=== PATIENT | female | born 1940 | race Caucasian/White ===

== ENCOUNTER 2020-09-13 11:04 | Inpatient (IN) | payer OTHER ==
--- OUTSIDE RECORDS SUMMARY | 2020-09-13 11:11 | XMS REPORT | Continuity of Care Document ---
:1940 Author Organization [facility] t Address [address] [place] [address] Care Team Providers Name Role Phone Nadia MICHELLE Primary Care Physician Gerardo MICHELLE Attending Clinician Doctor Unassigned, Name Attending Clinician Unavailable Problems This patient has no known problems. Allergies, Adverse Reactions, Alerts Allergy Allergy Status Severity Reaction(s) Onset Inactive Treating Comm ents Source Name Type Date Date Clinician Jasvir Naik Active Extreme [place] on ycin ty to 12-09 stomach Methodi adverse 00:00: cramps st reaction 00 s to drug Family History Family Member Diagnosis Comments Start Date Stop Date Source Natural brother [facility] Natural brother [facility] Natural mother Asthma [facility] thodist Natural mother Heart disease [facility] Social History Social Habit Start Date Stop Date Quantity Comments Source [facility] Tobacco use and 2018-06-23 2018-06-23 [facility] damarisodist exposure 00:00:00 00:00:00 Alcohol intake 2018-06-23 2018-06-23 Current drinker [place] Religious 00:00:00 00:00:00 of alcohol (finding) Alcohol Comment 2017-12-09 2017-12-09 occ. [place] Jeri ethodist 00:00:00 00:00:00 Smoking Status Start Date Stop Date Source Never smoker [place] Foreign Medications Ordered Filled Start Stop Current Ordering Indication Dosage Frequency Signature Comments Components Source Medication Medication Date Date Medication? Clinician (SIG) Name Name leflunomide 2017-08 Yes 10mg QD Take 10 mg Rohan (ARAVA) 10 - by mouth Metho di MG tablet 12:40: daily. st 33 albuterol 2017-08 Yes 2{puff} Q6H Inhale 2 [place] (PROAIR 1-06 puffs Methodi HFA,PROVENT 12:40: every 6 st [place] 33 (six) HFA,VENTOLI hours as N HFA) 90 needed for mcg/actuati wheezing. on inhaler albuterol 2017-08 Yes 1{ampul Q6H Take 1 Alan ston (ACCUNEB) 1-06 e} ampule by Metho di 1.25 mg/3 12:40: nebulizati st mL 33 on every 6 nebulizer (six) solution hours as needed for wheezing. fluticasone 2017-08 Yes 1{puff} Q.5D Inhale 1 Madrigal -salmeterol 1-06 puff 2 Method i (ADVAIR) 12:40: (two) st 250-50 33 times a mcg/dose day. DISKUS denosumab 2017-08 Yes 60mg Inject 60 Alan ston (PROLIA) 60 1-06 mg under Meth abraham mg/mL 12:40: the skin st syringe 33 once. syringe predniSONE 2017-08 Yes QD Take by [place] 5 mg 1-06 mouth Methodi tablet,shon 12:40: daily. st yed release 33 (DR/EC) cholecalcif 2017-08 Yes 1000U QD Take 1,000 Madrigal hugh, 1-06 Units by Methodi vitamin D3, 12:40: mouth st (VITAMIN 33 daily. D3) 1,000 unit tablet clindamycin Yes 300mg Q.5D Take 300 [place] (CLEOCIN) 9-19 mg by Methodi 300 MG 00:00: mouth 2 st capsule 00 (two) times a day. ipratropium 2018- Yes 1{spray QD 1 spray Madrigal (ATROVENT) 8-02 } into each Meth abraham 0.03 % 00:00: nostril st nasal spray 00 daily. spironolact 2018-0 Yes 25mg QD Take 25 mg Madrigal one 3-05 by mouth Methodi (ALDACTONE) 00:00: daily. st 25 MG 00 tablet Procedures This patient has no known procedures. Plan of Care Planned Activity Planned Date Details Comments Source Future Scheduled 2020-03-16 INFLUENZA VACCINE Vernell Beasley Test 00:00:00 [code = INFLUENZA VACCINE] Future Scheduled 2006 65+ PNEUMOCOCCAL [place] Religious Test 00:00:00 VACCINE (1 of 1 - PPSV23) [code = 65+ PNEUMOCOCCAL VACCINE (1 of 1 - PPSV23)] Future Scheduled 1991 SHINGLES VACCINES (#1) [facility] Religious Test 00:00:00 [code = SHINGLES VACCINES (#1)] Future Scheduled 1957 COVID-19 VACCINE (1 of H [facility] Religious Test 00:00:00 2) [code = COVID-19 VACCINE (1 of 2)] Encounters Start End Encounter Admission Attending Care Care Encounter Source Date/Time Date/Time Type Type Clinicians Facility Department ID 2019-03-30 2019-03-30 Telephone Gerardo NCDIMITRY [id number] 00:00:00 00:00:00 Arlette Lazaro [id number] [place] [id number] Katherine [id number] [address] 2019-03-30 2019-03-30 Orders Doctor YOLANDA [id number] 00:00:00 00:00:00 Only Unassigned, JAZ [id number] [place] [facility] [id number] Results This patient has no known results.
--- OUTSIDE RECORDS SUMMARY | 2020-09-13 11:11 | XMS REPORT | Clinical Summary ---
:1940 Author Organization [facility] Address [address] [place] [address] Care Team Providers Name Role Phone Unavailable Primary Care Provider Unavailable Allergies Not on File Medications Not on file Active Problems Not on file Social History Tobacco Use Types Packs/Day Years Used Date Never Assessed Sex Assigned at Date Recorded Not on file Last Filed Vital Signs Not on file Plan of Treatment Not on file Results Not on fileafter 09/13/2019
--- OUTSIDE RECORDS SUMMARY | 2020-09-13 11:11 | XMS REPORT | Clinical Summary ---
:1940 Author Organization [facility] Address [address] [place] [address] Care Team Providers Name Role Phone MD Nadia Primary Care Provider Allergies Active Allergy Reactions Severity Noted Date Comments Erythromycin 12/09/2017 Extreme stomach cramps Medications Medication Sig Dispensed Refills Start Date End Date Status spironolactone Take 25 mg by mouth 1 10/18/2017 Active (ALDACTONE) 25 MG daily. tablet leflunomide (ARAVA) Take 10 mg by mouth 0 Active 10 MG tablet daily. albuterol (PROAIR Inhale 2 puffs 0 Active HFA,PROVENTIL every 6 (six) hours HFA,VENTOLIN HFA) 90 as needed for mcg/actuation inhaler wheezing. albuterol (ACCUNEB) Take 1 ampule by 0 Active 1.25 mg/3 mL nebulization every nebulizer solution 6 (six) hours as needed for wheezing. fluticasone-salmetero Inhale 1 puff 2 0 Active l (ADVAIR) 250-50 (two) times a day. mcg/dose DISKUS denosumab (PROLIA) 60 Inject 60 mg under 0 Active mg/mL syringe syringe the skin once. predniSONE 5 mg Take by mouth 0 Active tablet,delayed daily. release (DR/EC) cholecalciferol, Take 1,000 Units by 0 Active vitamin D3, (VITAMIN mouth daily. D3) 1,000 unit tablet ipratropium 1 spray into each 0 03/17/2018 Active (ATROVENT) 0.03 % nostril daily. nasal spray clindamycin (CLEOCIN) Take 300 mg by 0 05/04/2018 Active 300 MG capsule mouth 2 (two) times a day. Active Problems No known active problems Surgical History Surgery Date Site/Laterality Comments BRONCHOSCOPY, USING 06/21/2018 Chest/N/A Procedure: F LEXIBLE ELECTROMAGNETIC NAVIGATION [facility] HOSCOPY WITH ELECTROMAGNATIC NAVIGATION, BRONCHOSCOPY WIT H BIOPSY; Surgeon: Luis M Sandhu MD; Location: [facility]; Service: Thorac ic; Laterality: N/A; Medical History Medical History Date Comments RA (rheumatoid arthritis) (HCC) Diverticulosis Lung nodules Asthma Osteopenia Family History Medical History Relation Name Comments Lymphoma Brother Rj Man Diabetes Brother Robert Hutchinsonrvrosy Asthma Mother Heart disease Mother Relation Name Status Comments Brother Rj Hutchinsonrvrosy Alive Brother Robert Hutchinsonrvrosy Alive Father Mother Social History Tobacco Use Types Packs/Day Years Used Date Never Smoker Smokeless Tobacco: Never Used Alcohol Use Drinks/Week oz/Week Comments Yes occ. 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
[2020-09-13 13:25] LABS: Absolute Lymphocytes (CBC) 1.7 K/uL (0.7-4.9); Basophils % 0.2 % (0-1.3); Hematocrit 37.2 % (36.0-45.0); Lymphocytes % 11.7 % (15.3-44.8); MPV 7.8 fL (7.6-11.3); RBC Red Blood Cell Count 4.26 M/uL (3.86-4.86)
[2020-09-13] MEDS ORDERED: ONDANSETRON 4 MG/2 ML VIAL ONE (13:25)
[2020-09-13] MEDS ORDERED: NA CHLORIDE 0.9% 500 ML ONE (13:25)
[2020-09-13] MEDS ORDERED: MORPHINE 4 MG/ML SYR ONE ×2 (13:25→15:48)
[2020-09-13 13:42] LABS: Albumin 3.2 g/dL (3.4-5.0); Bilirubin Direct 0.1 mg/dL (0-0.2); Bilirubin Total 0.4 mg/dL (0.2-1.0); Protein, Total 7.7 g/dL (6.4-8.2)
[2020-09-13 14:13] LABS: Blood Morphology Comment NOT SEEN (NOT SEEN); Platelet Estimate ADEQ
--- NOTE | 2020-09-13 14:24 | RAD REPORT ---
EXAM DESCRIPTION: CTAbdomen Pelvis W Contrast - 09/13/2020 2:05 pm CLINICAL HISTORY: Abdominal pain. ABD PAIN COMPARISON: Abdomen Pelvis W Contrast dated 07/09/2017; CT ABD PELVIS W CONTRAST dated 05/03/2015; Thorax Wo Con dated 11/01/2017; Abdomen W/Wo Contrast dated 04/04/2019 TECHNIQUE: Biphasic CT imaging of the abdomen and pelvis was performed with 100 ml non-ionic IV cont rast. All CT scans are performed using dose optimization technique as appropriate and may include automated exposure control or mA/KV adjustment according to patient size. FINDINGS: 9 mm noncalcified nodule is seen in the left lung base laterally, unchanged since 2017 com parative study. Linear opacity is present in the posterior right lung. Small hiatal hernia is present. The liver demonstrates no focal mass or biliary dilatation. The splee n, adrenal glands and kidneys are within normal limits. 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 There is moderate inflammation seen surrounding the pancreas compatible with acute pancreatitis. No a bscess or portal venous thrombosis. No bowel obstruction, free air, free fluid or abscess. Prominent sigmoid diverticulosis coli is pres ent without diverticulitis. Nonvisualized appendix No evidence of significant lymphadenopathy. Moderate lumbosacral degenerative changes. IMPRESSION: Moderate acute pancreatitis. No complication is evident.
[2020-09-13] MEDS ORDERED: PROMETHAZINE INJ 25 MG/ML AMP ONE (15:48)
--- NOTE | 2020-09-13 15:50 | ER ---
Nurse's Notes [facility] Name: Veronica Delacruz Age: 80 yrs Sex: Female : 1940 Arrival Date: 09/13/2020 Time: 11:04 Bed 18 [facility] MD: Diagnosis: Acute pancreatitis;Abdominal and pelvic pain Presentation: 09/13 11:48 Chief complaint: Patient states: chest, abd pain and now back pain that began 0800 this morning. Coronavirus screen: Client denies travel out of the [place] in the last 14 days. Ebola Screen: Patient denies exposure to infectious person. Patient denies travel to an Ebola-affected area in the 21 days before illness onset. Initial Sepsis Screen: Does the patient meet any 2 criteria? No. Patient's initial sepsis screen is negative. Does the patient have a suspected source of infection? No. Patient's initial sepsis screen is negative. Risk Assessment: Do you want to hurt yourself or someone else? Patient reports no desire to harm self or others. Onset of symptoms was September 13, 2020. 11:48 Method Of Arrival: Ambulatory 11:48 Acuity: PRAVEENA 2 ss Historical: - Allergies: 11:50 erythromycin base; ss - Home Meds: 17:27 spironolactone 25 mg Oral tab 1 tab once daily [Active]; vg1 - PMHx: 11:50 Asthma; Rheumatoid Arthritis; ss - PSHx: 11:50 None; ss - Immunization history:: Adult Immunizations up to date. - Social history:: Smoking status: Patient denies any tobacco usage or history of. Screenin:16 Abuse screen: Denies threats or abuse. Nutritional screening: No deficits noted. vg1 Tuberculosis screening: No symptoms or risk factors identified. Fall Risk No fall in past 12 months (0 pts). No secondary diagnosis (0 pts). IV access (20 points). Ambulatory Aid- None/Bed Rest/Nurse Assist (0 pts). Gait- Normal/Bed Rest/Wheelchair (0 pts) Mental Status- Oriented to own ability (0 pts). Total Duarte Fall Scale indicates No Risk (0-24 pts). Assessment: 12:05 General: Appears in no apparent distress. comfortable, Behavior is calm, cooperative. vg1 Pain: Complains of pain in Epigasric area and below the umbilicus. Pain currently is 8 out of 10 on a pain scale. Neuro: Level of Consciousness is awake, alert, obeys commands, Oriented to person, place, time, situation. Cardiovascular: Patient's skin is warm and dry. Respiratory: Airway is patent Respiratory effort is even, unlabored, Respiratory pattern is regular, symmetrical. GI: Bowel sounds present X 4 quads. Abd is soft X 4 quads Abdomen is tender to palpation in epigastric area, right lower quadrant and left lower quadrant. : No signs and/or symptoms were reported regarding the genitourinary system. EENT: No signs and/or symptoms were reported regarding the EENT system. Derm: Skin is intact, is healthy with good turgor. Musculoskeletal: Circulation, motion, and sensation intact. 13:31 Reassessment: Patient appears in no apparent distress at this time. Patient and/or vg1 family updated on plan of care and expected duration. Pain level reassessed. Patient is alert, oriented x 3, equal unlabored respirations, skin warm/dry/pink. 15:28 Reassessment: Patient states pain keeps coming and going and is still feeling nauseous. vg1 Provider notified. 15:36 Reassessment: Received VO from DR Spears to administer 4mg of morphine IVP x1 and vg1 Promethazine 12.5 mg IVP x1. 17:00 Reassessment: Patient appears in no apparent distress at this time. Patient and/or vg1 family updated on plan of care and expected duration. Pain level reassessed. Patient is alert, oriented x 3, equal unlabored respirations, skin warm/dry/pink. Patient states feeling better. 17:30 Reassessment: Received VO from Dr Spears to administer 25mg of Spironolactone PO x1. vg1 18:36 Reassessment: Patient and/or family updated on plan of care and expected duration. Pain vg1 level reassessed. Patient is alert, oriented x 3, equal unlabored respirations, skin warm/dry/pink. Patient states that pain is coming back. Rates 4/10. 18:49 Reassessment: Attempted to call report. vg1 19:33 Reassessment: Attempted to call report. vg1 Vital Signs: 11:50 BP 213 / 99; Pulse 94; Resp 18; Temp 98.9(TE); Pulse Ox 100% on R/A; Weight 51.26 kg; ss Height 5 ft. 0 in. (152.40 cm); Pain 7/10; 11:52 BP 183 / 88; ss 12:15 BP 190 / 7; Pulse 80; Resp 16; Pulse Ox 100% on R/A; vg1 13:00 BP 172 / 80; Pulse 76; Resp 16; Pulse Ox 100% on R/A; vg1 15:30 BP 164 / 81; Pulse 76; Resp 16; Pulse Ox 95% on R/A; vg1 16:00 BP 171 / 74; Pulse 75; Resp 14; Pulse Ox 95% on R/A; vg1 17:00 BP 164 / 80; Pulse 75; Resp 14; Pulse Ox 96% on R/A; vg1 18:36 BP 183 / 82; Pulse 84; Resp 18; Pulse Ox 96% on R/A; vg1 11:50 Body Mass Index 22.07 (51.26 kg, 152.40 cm) ED Course: 11:04 Patient arrived in ED. ds1 11:49 Triage completed. ss 11:50 Arm band placed on left wrist. ss 12:05 Meghana Heard, RN is Primary Nurse. vg1 12:07 EKG done, by ED staff, reviewed by Juan Pablo Spears MD. dh3 12:16 Patient has correct armband on for positive identification. Bed in low position. Call vg1 light in reach. Side rails up X 1. 12:21 Juan Pablo Spears MD is Attending Physician. kdr 13:00 Missed attempt(s): 22 gauge in right wrist. vg1 13:28 CT Abd/Pelvis - IV Contrast Only In Process Unspecified. EDMS 13:34 Inserted saline lock: 20 gauge in left wrist, using aseptic technique. ,using aseptic vg1 technique. Done by ZAIDA Jacobo. 13:34 Initial lab(s) drawn, by hi, sent to lab. jp3 15:49 Rafael Zuniga MD is Hospitalizing Provider. kdr 16:28 COVID swab sent to lab. jp3 17:[address] via wheelchair. vg1 18:[address] vg1 19:49 No provider procedures requiring assistance completed. Patient admitted, IV remains in vg1 place. Administered Medications: 13:30 Drug: Zofran (Ondansetron) 4 mg Route: IVP; Site: left wrist; vg1 15:37 Follow up: Response: Nausea unchanged vg1 13:30 Drug: morphine 4 mg {Note: rass0.} Route: IVP; Site: left wrist; vg1 15:37 Follow up: Response: Pain is unchanged, physician notified; RASS: Restless (+1) vg1 13:30 Drug: NS 0.9% 500 ml Route: IV; Rate: bolus; Site: left wrist; vg1 15:36 Follow up: IV Status: Completed infusion; IV Intake: 500ml vg1 15:43 Drug: morphine 4 mg {Note: rass1.} Route: IVP; Site: left wrist; vg1 17:28 Follow up: Response: Pain is decreased; RASS: Alert and Calm (0) vg1 15:44 Drug: Promethazine 12.5 mg Route: IVP; Site: left wrist; vg1 17:28 Follow up: Response: No adverse reaction; Nausea is decreased vg1 18:52 Drug: Spironolactone 25 mg Route: PO; vg1 19:52 Follow up: Response: No adverse reaction vg1 Intake: 15:36 IV: 500ml; Total: 500ml. vg1 Outcome: 15:49 Decision to Hospitalize by Provider. kdr 19:50 Admitted to Tele accompanied by tech, via wheelchair, room 205, with chart, Report vg1 called to TATYANA White 19:50 Condition: stable 19:50 Instructed on the need for admit. 20:07 Patient left the ED. vg1 Signatures: Dispatcher [employer] EDJuan Pablo David MD MD kdr Sanford, Demi ds1 Elise Sparrow, RN RN Rosalind Monroy3 Seth Rose jp3 Meghana Heard RN RN vg1
--- NOTE | 2020-09-13 15:50 | EDPHYS ---
Physician Documentation [facility] Name: Veronica Delacruz Age: 80 yrs Sex: Female : 1940 Arrival Date: 09/13/2020 Time: 11:04 Bed 18 Private MD: ED Physician Juan Pablo Spears HPI: 09/13 18:40 This 80 yrs old Female presents to ER via Ambulatory with complaints of kdr Abdominal Pain. 18:40 The patient presents with abdominal pain in the epigastric area, in the upper abdomen, kdr that is diffuse, From mid chest to pelvis. Onset: The symptoms/episode began/occurred gradually, this morning, at 08:00. The symptoms radiate to back. Associated signs and symptoms: Pertinent positives: nausea, Pertinent negatives: chest pain. The symptoms are described as achy, constant, sharp, steady. Modifying factors: The symptoms are alleviated by nothing, the symptoms are aggravated by breathing deeply, movement, touching the area. Severity of pain: At its worst the pain was moderate severe incapacitating just prior to arrival, in the emergency department the pain is unchanged. The patient has experienced a previous episode, approximately 4 years ago. The patient has not recently seen a physician. Historical: - Allergies: 11:50 erythromycin base; ss - Home Meds: 17:27 spironolactone 25 mg Oral tab 1 tab once daily [Active]; vg1 - PMHx: 11:50 Asthma; Rheumatoid Arthritis; ss - PSHx: 11:50 None; ss - Immunization history:: Adult Immunizations up to date. - Social history:: Smoking status: Patient denies any tobacco usage or history of. ROS: 18:40 Constitutional: Negative for fever, chills, and weight loss, Eyes: Negative for injury, kdr pain, redness, and discharge, ENT: Negative for injury, pain, and discharge, Neck: Negative for injury, pain, and swelling, Cardiovascular: Negative for chest pain, palpitations, and edema, Respiratory: Negative for shortness of breath, cough, wheezing, and pleuritic chest pain, Back: Negative for injury and pain, : Negative for injury, bleeding, discharge, and swelling, MS/Extremity: Negative for injury and deformity, Skin: Negative for injury, rash, and discoloration, Neuro: Negative for headache, weakness, numbness, tingling, and seizure activity. Psych: Negative for depression, anxiety, suicide ideation, homicidal ideation, and hallucinations, Allergy/Immunology: Negative for hives, rash, and allergies, Endocrine: Negative for neck swelling, polydipsia, polyuria, polyphagia, and marked weight changes, Hematologic/Lymphatic: Negative for swollen nodes, abnormal bleeding, and unusual bruising. 18:40 Abdomen/GI: Positive for abdominal pain, nausea, Negative for diarrhea, constipation, abdominal distension, anorexia, dysphagia, hematemesis, black/tarry stool, rectal pain, rectal bleeding, bowel incontinence. Exam: 18:40 Constitutional: This is a well developed, well nourished patient who is awake, alert, kdr and in mild to moderate distress. Head/Face: Normocephalic, atraumatic. Eyes: Pupils equal round and reactive to light, extra-ocular motions intact. Lids and lashes normal. Conjunctiva and sclera are non-icteric and not injected. Cornea within normal limits. Periorbital areas with no swelling, redness, or edema. Neck: Trachea midline, no thyromegaly or masses palpated, and no cervical lymphadenopathy. Supple, full range of motion without nuchal rigidity, or vertebral point tenderness. No Meningismus. Chest/axilla: Normal chest wall appearance and motion. Nontender with no deformity. No lesions are appreciated. Cardiovascular: Regular rate and rhythm with a normal S1 and S2. No gallops, murmurs, or rubs. Normal PMI, no JVD. No pulse deficits. Respiratory: Lungs have equal breath sounds bilaterally, clear to auscultation and percussion. No rales, rhonchi or wheezes noted. No increased work of breathing, no retractions or nasal flaring. Back: No spinal tenderness. No costovertebral tenderness. Full range of motion. Skin: Warm, dry with normal turgor. Normal color with no rashes, no lesions, and no evidence of cellulitis. MS/ Extremity: Pulses equal, no cyanosis. Neurovascular intact. Full, normal range of motion. Neuro: Awake and alert, GCS 15, oriented to person, place, time, and situation. Cranial nerves II-XII grossly intact. Motor strength 5/5 in all extremities. Sensory grossly intact. Cerebellar exam normal. Normal gait. Psych: Awake, alert, with orientation to person, place and time. Behavior, mood, and affect are within normal limits. 18:40 Abdomen/GI: Inspection: abdomen appears normal, Bowel sounds: diminished, in all quadrants, Palpation: soft, mild abdominal tenderness, in the epigastric area, right upper quadrant and left upper quadrant. Vital Signs: 11:50 BP 213 / 99; Pulse 94; Resp 18; Temp 98.9(TE); Pulse Ox 100% on R/A; Weight 51.26 kg; ss Height 5 ft. 0 in. (152.40 cm); Pain 7/10; 11:52 BP 183 / 88; ss 12:15 BP 190 / 7; Pulse 80; Resp 16; Pulse Ox 100% on R/A; vg1 13:00 BP 172 / 80; Pulse 76; Resp 16; Pulse Ox 100% on R/A; vg1 15:30 BP 164 / 81; Pulse 76; Resp 16; Pulse Ox 95% on R/A; vg1 16:00 BP 171 / 74; Pulse 75; Resp 14; Pulse Ox 95% on R/A; vg1 17:00 BP 164 / 80; Pulse 75; Resp 14; Pulse Ox 96% on R/A; vg1 18:36 BP 183 / 82; Pulse 84; Resp 18; Pulse Ox 96% on R/A; vg1 11:50 Body Mass Index 22.07 (51.26 kg, 152.40 cm) ss MDM: 15:49 Patient medically screened. kdr 18:40 Data reviewed: vital signs, nurses notes, lab test result(s), radiologic studies. kdr Counseling: I had a detailed discussion with the patient and/or guardian regarding: the historical points, exam findings, and any diagnostic results supporting the discharge/admit diagnosis, lab results, radiology results, the need for further work-up and treatment in the hospital. Physician consultation: Rafael Zuniga MD regarding admission, and will see patient in inpatient room, later today. Admission orders: after a detailed discussion of the patient's condition and case, the admit orders are written by me. 09/13 12:22 Order name: Basic Metabolic Panel; Complete Time: 14:03 kdr 09/13 12:22 Order name: CBC with Diff; Complete Time: 14:20 kdr 09/13 12:22 Order name: Hepatic Function; Complete Time: 14:03 kdr 09/13 12:22 Order name: Lipase; Complete Time: 14:03 kdr 09/13 12:52 Order name: Troponin (emerg Dept Use Only); Complete Time: 14:03 kdr 09/13 14:13 Order name: Manual Differential; Complete Time: 14:20 EDMS 09/13 12:52 Order name: CT Abd/Pelvis - IV Contrast Only; Complete Time: 14:38 kdr 09/13 15:48 Order name: Cholangiogram EDAL 09/13 17:38 Order name: SARS-COV-2 RT PCR EDAL 09/13 12:22 Order name: IV Saline Lock; Complete Time: 13:38 kdr 09/13 12:22 Order name: Labs collected and sent; Complete Time: 13:38 [facility] 09/13 12:53 Order name: EKG - Nurse/Tech; Complete Time: 13:05 [facility] 09/13 16:04 Order name: Dr Andre Antonio EDAL 09/13 16:04 Order name: NPO EDAL Administered Medications: 13:30 Drug: Zofran (Ondansetron) 4 mg Route: IVP; Site: left wrist; vg1 15:37 Follow up: Response: Nausea unchanged vg1 13:30 Drug: morphine 4 mg {Note: rass0.} Route: IVP; Site: left wrist; vg1 15:37 Follow up: Response: Pain is unchanged, physician notified; RASS: Restless (+1) vg1 13:30 Drug: NS 0.9% 500 ml Route: IV; Rate: bolus; Site: left wrist; vg1 15:36 Follow up: IV Status: Completed infusion; IV Intake: 500ml vg1 15:43 Drug: morphine 4 mg {Note: rass1.} Route: IVP; Site: left wrist; vg1 17:28 Follow up: Response: Pain is decreased; RASS: Alert and Calm (0) vg1 15:44 Drug: Promethazine 12.5 mg Route: IVP; Site: left wrist; vg1 17:28 Follow up: Response: No adverse reaction; Nausea is decreased vg1 18:52 Drug: Spironolactone 25 mg Route: PO; vg1 19:52 Follow up: Response: No adverse reaction vg1 Disposition: 09/13/20 15:49 Hospitalization ordered by Rafael Zuniga for Inpatient Admission. Preliminary diagnosis are Acute pancreatitis, Abdominal and pelvic pain. - Bed requested for Telemetry/MedSurg (Inpatient). - Status is Inpatient Admission. vg1 - Condition is Fair. - Problem is an acute exacerbation. - Symptoms have improved. Signatures: Dispatcher [employer] EDAL Aaliyah Lieberman, RN RN dw Juan Pablo Spears MD MD [facility] Elise Sparrow, TATYANA RN ss Meghana Heard, TATYANA RN vg1 Corrections: (The following items were deleted from the chart) 16:27 16:11 CORONAVIRUS+MR.LAB.BRZ ordered. [facility] EDAL 18:13 15:49 Hospitalization Ordered by Rafael Zuniga MD for Inpatient Admission. Preliminary dw diagnosis is Acute pancreatitis; Abdominal and pelvic pain. Bed requested for Telemetry/MedSurg (Inpatient). Status is Inpatient Admission. Condition is Fair. Problem is an acute exacerbation. Symptoms have improved. kdr 20:07 18:13 09/13/2020 15:49 Hospitalization Ordered by Rafael Zuniga MD for Inpatient vg1 Admission. Preliminary diagnosis is Acute pancreatitis; Abdominal and pelvic pain. Bed requested for Telemetry/MedSurg (Inpatient). Status is Inpatient Admission. Condition is Fair. Problem is an acute exacerbation. Symptoms have improved. dw
[2020-09-13] MEDS ORDERED: ACETAMINOPHEN 500 MG TAB PO PRN (16:00)
[2020-09-13] MEDS ORDERED: SPIRONOLACTONE 25 MG TABLET PO SCH (18:30)
--- NOTE | 2020-09-13 19:00 | RAD REPORT ---
EXAM DESCRIPTION: MRI - Cholangiogram - 09/13/2020 6:27 pm CLINICAL HISTORY: abd pain Pancreatitis, abdominal pain COMPARISON: Abdomen Pelvis W Contrast dated 09/13/2020 FINDINGS: Three-dimensional MRCP was performed using maximum intensity projection reconstruction on the same work station. No intrahepatic biliary tree dilatation is seen. The common bile duct is normal caliber without evide nce of retained stone, stricture or mass. Moderate inflammatory change/ edema involves the pancreas. Pancreatic duct is not dilated. No gross evidence gallstones. Limited T2 sequences through the abdomen demonstrates no bulky adenopathy, significant free fluid or abscess. 3 cm right adrenal mass. IMPRESSION: Negative MR cholangiogram. Moderate pancreatitis.
--- NOTE | 2020-09-13 20:44 | P.HP ---
Certification for Inpatient Patient admitted to: Inpatient With expected LOS: >2 Midnights Practitioner: I am a practitioner with admitting privileges, knowledge of patient current condition, hospital course, and medical plan of care. Services: Services provided to patient in accordance with Admission requirements found in Title 42 Section 412.3 of the Code of Federal Regulations Patient History Date of Service: 09/13/20 Reason for admission: ABDOMEN PAIN History of Present Illness: MS CHERY HAS RECENTLY HAD ACUTE BRONCHTIS EPSODE UNIMPROVED ON AUGMENTIN AND NEBS. I AVOIDED STEROIDS SHE HAD ONE DOSE OF COVID VACCINE AND SHE IS AWAITING SECOND ONE. GIVING STEROIDS WILL REDUCE THE POTENCY OF THE VACCINE THAT IS VERY IMPORTANT AT THIS POINT. SHE HAS RECOVERED FROM BRONCHITIS AFTER I GAVE HER STEROID NEBULIZER BUDESONIDE. SHE REPORTS TO ER TODAY WITH SUDDEN ONSET OF EPIG PAIN WITH RADIATION TO THE BACK. SHE HAS LIPSE OF 9K AND SECOND EPISODE OF PANCREATITIS. FIRST ONE WAS 15 YEARS AGO. Allergies erythromycin base [Erythromycin Base] Adverse Reaction (Intermediate, Verified 07/09/17 22:52) Nausea/Vomiting Erythromycin Allergy (Uncoded 07/09/17 22:52) Unknown Home Medications: Albuterol Sulfate [Ventolin Hfa] 1.25 mg IH BID PRN 07/09/17 Fluticasone/Salmeterol [Advair 250-50 Diskus] 1 each IH DAILY 07/09/17 Leflunomide 1 tab PO DAILY 07/09/17 Spironolactone 1 tab PO DAILY 07/09/17 predniSONE [Prednisone*] 1 tab PO SEECOM PRN 07/09/17 - Past Medical/Surgical History Has patient received pneumonia vaccine in the past: Yes -: Ashma -: Rheumatoid Arthritis - Social History Alcohol use: No CD- Drugs: No Caffeine use: Yes Review of Systems 10-point ROS is otherwise unremarkable General: Weakness, Malaise Physical Examination - Vital Signs Temperature: 98.9 F Blood Pressure: 183/82 Pulse: 84 Respirations: 18 - Physical Exam General: Oriented x3, Mild distress HEENT: Atraumatic, PERRLA, Mucous membr. moist/pink, EOMI, Sclerae nonicteric Neck: Supple, 2+ carotid pulse no bruit, No LAD, Without JVD or thyroid abnormality Respiratory: Clear to auscultation bilaterally, Normal air movement Cardiovascular: Regular rate/rhythm, Normal S1 S2 Gastrointestinal: Normal bowel sounds, No tenderness Musculoskeletal: No tenderness Integumentary: No rashes Neurological: Normal gait, Normal speech, Normal strength at 5/5 x4 extr, Normal tone, Normal affect Lymphatics: No axilla or inguinal lymphadenopathy - Studies Laboratory Data (last 24 hrs) 09/13/20 13:10: WBC 14.50 H, Hgb 12.3, Hct 37.2, Plt Count 395 09/13/20 13:10: Sodium 141, Potassium 4.0, BUN 15, Creatinine 0.77, Glucose 89, Total Bilirubin 0.4, AST 13 L, ALT 13, Alkaline Phosphatase 92, Lipase 8798 H Assessment and Plan - Problems (Diagnosis) (1) Rheumatoid arthritis Current Visit: Yes Status: Chronic Qualifiers: Laterality: bilateral (2) Acute pancreatitis Onset Date: 07/12/17 Current Visit: No Status: Acute Plan: IV FLUIDS PAIN MANAGEMENT , SHE IS NOT IN PAIN FOR NOW. SUPPORTIVE CARE CONSULT DR. BERNARDO. MOST LIKELY SHE SHOULD BE ABLE TO GO HOME IN AM. Qualifiers: Pancreatitis type: idiopathic (3) History of asthma Current Visit: No Status: Acute - Advance Directives Does patient have a Living Will: Yes Does patient have a Durable POA for Healthcare: Yes
[2020-09-13] MEDS: D5 0.45 NS 1,000 ML IV SCH (21:20)
[2020-09-13] MEDS: MORPHINE 4 MG/ML SYR IV PRN (21:21)
[2020-09-13] MEDS: PROMETHAZINE INJ 25 MG/ML AMP IV PRN (21:25)
[2020-09-14 00:03] VITALS: BMI 22.0
[2020-09-14] MEDS: D5 0.45 NS 1,000 ML IV SCH ×5 (02:00→23:01)
[2020-09-14] MEDS ORDERED: ALBUTEROL INHALER 60 PUFF/8 GM IH PRN (05:23)
[2020-09-14] MEDS: MORPHINE 4 MG/ML SYR IV PRN ×2 (05:29→13:34)
[2020-09-14] MEDS ORDERED: LEFLUNOMIDE PO SCH (05:30)
[2020-09-14] MEDS: PROMETHAZINE INJ 25 MG/ML AMP IV PRN (05:30)
[2020-09-14] MEDS ORDERED: FAMOTIDINE 20 MG TAB PO PRN (05:33)
[2020-09-14 05:46] LABS: Absolute Lymphocytes (CBC) 1.5 K/uL (0.7-4.9); Basophils % 0.4 % (0-1.3); Hematocrit 34.8 % (36.0-45.0); Lymphocytes % 9.4 % (15.3-44.8); MPV 7.9 fL (7.6-11.3); RBC Red Blood Cell Count 3.94 M/uL (3.86-4.86)
[2020-09-14 06:03] LABS: Albumin 2.7 g/dL (3.4-5.0); Bilirubin Direct 0.1 mg/dL (0-0.2); Bilirubin Total 0.5 mg/dL (0.2-1.0); Potassium 3.7 mmol/L (3.5-5.1); Protein, Total 6.8 g/dL (6.4-8.2)
[2020-09-14] MEDS: DULERA 100/5 (MOMETASONE/FORMOTEROL) INHALER IH SCH ×2 (09:00→20:39)
--- NOTE | 2020-09-14 09:23 | PN ---
Subjective: Ms. Delacruz is doing better. She had pain this morning, 11/23. She received narcotic pain medication it. Objective: Chest: Clear. Heart: Regular. Abdomen: No guarding. No rebound. No rigidity. Laboratory Data: White count 15,000. Lipase has come down from 8700 to 3600. Assessment/plan: 1.Acute pancreatitis. Continue n.p.o. Continue IV fluids. Continue comfort care. Conservative ma nagement. 2.Deep venous thrombosis prophylaxis. Dr. Antonio is consulted. She should be possibly going home t omorrow hopefully. Otherwise, she is clinically stable. RVD/MODL Voice ID: [id number] Report ID: [id number]
[2020-09-14] MEDS: SPIRONOLACTONE 25 MG TABLET PO SCH (10:25)
[2020-09-14] MEDS ORDERED: LEFLUNOMIDE 10 MG PO SCH (17:00)
[2020-09-14] MEDS ORDERED: GABAPENTIN 100 MG CAP PO SCH (21:00)
--- NOTE | 2020-09-14 22:49 | CON ---
Date of Consultation: 09/14/2020 Reason For Consultation: Acute pancreatitis. History Of Present Illness: The patient is a 80-year-old white female with history of hypertension, rheumatoid arthritis, asthma, who presented to the hospital with acute pancreatitis. CT scan positiv e for moderate pancreatitis. MRCP negative. Lipase elevated ultimately to 8000 and the patient note s recent change in medications due to COVID-19. She received her first COVID-19 vaccination approxim ately a month ago and she had some shortness of breath related to her asthma and was started on Augme ntin and budesonide MDI or nebulizer approximately 3 days ago. Of note, she had pancreatitis 15 year s ago, which is idiopathic. She does not remember things and medicines given 15 years ago. The lux ent denies any history of alcohol. Triglycerides will be checked. Other labs appear to be within no rmal limits except for white count is up at approximately 14,000 to 15,000. Past Medical History: Significant for hypertension, rheumatoid arthritis, asthma. Medications: At home include spironolactone for her blood pressure she states, leflunomide, and then she is on Advair and Ventolin inhalers and prednisone at home, which has been held because it may in terfere with the second COVID-19 vaccination she is supposed to receive this week or next week. Allergies: ERYTHROMYCIN. Social History: She is with 2 adopted kids. No tobacco. No alcohol. Family History: Father of congestive heart failure at the age of 86 in [place], [place]. Her moth er of respiratory failure with a history of asthma at the age of 71 in the [facility] area, which is just she reports. Review of Systems: The patient had some shortness of breath she says since [place] with history of recurrent bronchiti s, really has not changed and that is the reason why she was started on Augmentin and budesonide, whi ch she thinks may have led to this pancreatitis event. She also noted generalized abdominal pain ext ending to her chest prior to admission with 9.5/10 pain. Now, the pain is down to 0. Before it went to 0, her pain localized in the midepigastric area she reports and little bit to the left. The lux ent has some nausea as well. No fevers, chills, night sweats, heat or cold intolerance. No melena, hematochezia, hematemesis, coffee-grounds emesis, hematuria, lower extremity edema, muscle aches, galindo nt aches, backaches. No seizure or syncope. No depression or anxiety. Physical Examination: Vital Signs: The patient is 5 feet, 113 pounds, BMI 22.1 kg/m2. She has temperature of 99.1 degrees Fahrenheit, pulse 89, respirations 18, blood pressure 138/65, O2 saturation 93%. General: She is an elderly female, lying in bed, in no acute distress. HEENT: Normocephalic, atraumatic. Anicteric. Pupils equal, round, and reactive to light. Extraocu lar movements are intact. Oropharynx is clear. Neck: Supple. No masses. Respirations: Clear to auscultation bilaterally. Respirations clear on anterior exam only. Some di minished breath sounds in the bases. Cardiac: Regular rate and rhythm. No gallops or rubs. Abdomen: Positive bowel sounds. Soft, nondistended, nontender. No hepatosplenomegaly. No peritone al or Roberts sign. No rebound. Extremities: No clubbing, cyanosis, or edema. 2+ pulses. Neurologic: Alert and oriented x3. Grossly nonfocal. 5/5 motor sensation intact to light touch. Laboratory Data: The patient has a white count of 15.4 from 14.5 yesterday, hemoglobin 11.3, hematoc rit 34.8, MCV of 88, platelet count of 235, neutrophils of 73, lymphocytes 9.4, monocytes 4.0, eosino phils 13.2. The patient has sodium 138, potassium 3.7, chloride 109, bicarb 24, BUN of 12, creatinin e of 0.69, glucose is 100, calcium 8.5, total bilirubin 0.5, direct bilirubin 0.1, AST of 13, ALT of 9, alkaline phosphatase 72. Troponin I less than 0.02. Total protein 6.8, albumin 2.7. Triglycerid es 90, cholesterol 160, LDL 102, HDL 40. Lipase has gone from 8798 down to 3634. COVID-19 testing w as negative. CT abdomen and pelvis revealed pancreatitis . She also has some moderate lum bar sacral degenerative changes. MRCP was negative. No stones were noted in the bile duct nor in th e gallbladder. Impression: 1.Acute pancreatitis, idiopathic, possibly related to medication changes. The patient states p.o. p rednisone was held due to the COVID-19 vaccination she is supposed to receive soon and was placed on Augmentin and budesonide inhaler or nebulizer approximately 3 days ago. The pancreatitis event start ed yesterday with generalized abdominal pain of 0.5/10, then decreasing to just localized into the mi depigastric upper quadrant area. Finally, her pain is 0. MRCP was negative for stones. She does no t drink alcohol. Calcium is normal. The patient had an event 15 years ago of pancreatitis, which is idiopathic as well. The patient does note she adjusted her medicines for her asthma, recurrent bron chitis, and rheumatoid arthritis at that time. 2.Shortness of breath since [place] with a history of recurrent bronchitis and asthma. 3.History of hypertension, rheumatoid arthritis, asthma, and recurrent bronchitis. Recommendation: 1.Increase IV fluids gently. Allow limited ice chips and change to LR at approximately 125 cc/hour. We will check B-type natriuretic peptide as well. 2.Check triglycerides, which is done and CA19-9. 3.Keep the patient n.p.o. except for limited ice chips and possibly go on to clear liquids tomorrow. Monitor labs and possibly chest x-ray. JAQUAN/NICOL Voice ID: [id number] Report ID: [id number]
[2020-09-14 23:08] VITALS: O2SAT 95
[2020-09-15] MEDS: Ringers Lactate 1,000 ML IV SCH ×2 (01:09→10:13)
[2020-09-15 06:01] LABS: Absolute Lymphocytes (CBC) 1.9 K/uL (0.7-4.9); Basophils % 0.5 % (0-1.3); Lymphocytes % 12.9 % (15.3-44.8); MPV 7.9 fL (7.6-11.3); RBC Red Blood Cell Count 3.64 M/uL (3.86-4.86)
[2020-09-15 06:17] LABS: BUN Blood Urea Nitrogen 7 mg/dL (7-18); Bicarbonate 23 mmol/L (21-32); Glucose Level 79 mg/dL (74-106); Lipase 857 U/L (73-393); NT PRO-BNP 194 pg/mL (<450); Phosphorus 2.3 mg/dL (2.5-4.9); Potassium 3.6 mmol/L (3.5-5.1); Sodium Level 143 mmol/L (136-145)
[2020-09-15] MEDS ORDERED: ENOXAPARIN 40 MG/0.4 ML SQ STA (07:03)
[2020-09-15] MEDS: DULERA 100/5 (MOMETASONE/FORMOTEROL) INHALER IH SCH (09:00)
[2020-09-15 09:13] VITALS: BP 130/67; TEMP 99.5
[2020-09-15] MEDS: SPIRONOLACTONE 25 MG TABLET PO SCH (10:14)
--- NOTE | 2020-09-15 12:01 | P.PN ---
Subjective Date of Service: 09/15/20 Chief Complaint: general -> CIRILO/LUQ pain, pancreatitis Subjective: Improving (No pain now. Tolerated ice chips over night. Lipase 8798 to 3634 to 857 today. As per pharmacy review Prednisone and Leflunomide (for RA) can cause pancreatitis, but she stopped the latter 2-3 weeks ago.) Review of Systems 10-point ROS is otherwise unremarkable General: Weakness (Improved. ) Physical Examination - Vital Signs Temperature: 99.5 F Blood Pressure: 130/67 Pulse: 85 Respirations: 18 Pulse Ox (%): 95 - Physical Exam General: Alert, In no apparent distress, Oriented x3, Cooperative HEENT: Atraumatic, Normocephalic, PERRLA, EOMI Neck: Supple Respiratory: Clear to auscultation bilaterally Cardiovascular: Normal pulses Gastrointestinal: Soft and benign, No tenderness, No rebound, No guarding Neurological: Normal speech, Normal strength at 5/5 x4 extr Assessment And Plan - Current Problems (Diagnosis) (1) Generalized abdominal pain Current Visit: Yes Status: Acute Comment: Resolved. (2) Epigastric abdominal pain Current Visit: Yes Status: Acute Comment: Resolved. (3) Abnormal CT of the abdomen Current Visit: Yes Status: Acute (4) Rheumatoid arthritis Current Visit: Yes Status: Chronic Qualifiers: Laterality: bilateral (5) Acute pancreatitis Onset Date: 07/12/17 Current Visit: No Status: Acute Qualifiers: Pancreatitis type: idiopathic - Plan REC: 1) CL diet and advance slowly to FL then to low fat / low cholesterol 2) GI clinic f/u next week
--- NOTE | 2020-09-15 12:24 | P.DS ---
Admission Date: 09/13/20 Discharge Date: 09/15/20 Disposition: ROUTINE DISCHARGE Reason for Admission: general -> CIRILO/LUQ pain, pancreatitis - Problems (1) Rheumatoid arthritis Current Visit: Yes Status: Chronic Qualifiers: Laterality: bilateral (2) Acute pancreatitis Onset Date: 07/12/17 Current Visit: No Status: Acute Qualifiers: Pancreatitis type: idiopathic (3) History of asthma Current Visit: No Status: Acute Brief History of Present Illness: MS CHERY HAS RECENTLY HAD ACUTE BRONCHTIS EPSODE UNIMPROVED ON AUGMENTIN AND NEBS. I AVOIDED STEROIDS SHE HAD ONE DOSE OF COVID VACCINE AND SHE IS AWAITING SECOND ONE. GIVING STEROIDS WILL REDUCE THE POTENCY OF THE VACCINE THAT IS VERY IMPORTANT AT THIS POINT. SHE HAS RECOVERED FROM BRONCHITIS AFTER I GAVE HER STEROID NEBULIZER BUDESONIDE. SHE REPORTS TO ER TODAY WITH SUDDEN ONSET OF EPIG PAIN WITH RADIATION TO THE BACK. SHE HAS LIPSE OF 9K AND SECOND EPISODE OF PANCREATITIS. FIRST ONE WAS 15 YEARS AGO. Hospital Course: CARLINE CAME WITH PANCREATITIS ,HAD ABDOMEN PAIN WITH RADIATION TO BACK. THIS IS SECOND TIME IN LAST 15 YEARS. SHE IS LOT BETTER. SHE WANTS TO GO HOME. SHE WILL DO LIQUID DIET FOR COUPLE OF DAYS AND THEN RAISE TO EGGS AND CHICKEN, SOFT DIET. Vital Signs/Physical Exam: Temp Pulse Resp BP Pulse Ox 99.5 F 85 18 130/67 95 09/15/20 12:02 09/15/20 12:02 09/15/20 12:02 09/15/20 12:02 09/15/20 12:02 Laboratory Data at Discharge: WBC 14.70 K/uL (4.3-10.9) H 09/15/20 05:32 Hgb 10.6 g/dL (12.0-15.0) L 09/15/20 05:32 Hct 32.0 % (36.0-45.0) L 09/15/20 05:32 Plt Count 327 K/uL (152-406) 09/15/20 05:32 Sodium 143 mmol/L (136-145) 09/15/20 05:32 Potassium 3.6 mmol/L (3.5-5.1) 09/15/20 05:32 BUN 7 mg/dL (7-18) 09/15/20 05:32 Creatinine 0.56 mg/dL (0.55-1.3) 09/15/20 05:32 Glucose 79 mg/dL (74-106) 09/15/20 05:32 Phosphorus 2.3 mg/dL (2.5-4.9) L 09/15/20 05:32 Magnesium 2.0 mg/dL (1.8-2.4) 09/15/20 05:32 Total Bilirubin 0.5 mg/dL (0.2-1.0) 09/14/20 05:19 AST 13 U/L (15-37) L 09/14/20 05:19 ALT 9 U/L (12-78) L 09/14/20 05:19 Alkaline Phosphatase 72 U/L (45-117) 09/14/20 05:19 Triglycerides 90 mg/dL (<150) 09/14/20 17:11 Cholesterol 160 mg/dL (<200) 09/14/20 17:11 HDL Cholesterol 40 mg/dL (40-60) 09/14/20 17:11 Cholesterol/HDL Ratio 4.00 09/14/20 17:11 Lipase 857 U/L (73-393) H 09/15/20 05:32 Home Medications: Albuterol Sulfate [Ventolin Hfa] 1 inh IH QIDP PRN 07/09/17 Fluticasone/Salmeterol [Advair 250-50 Diskus] 2 inh IH DAILY 07/09/17 Leflunomide 10 mg PO Q48H 07/09/17 Spironolactone 1 tab PO DAILY 07/09/17 predniSONE [Prednisone*] 1 - 2 tab PO PRN PRN 07/09/17 Ascorbic Acid [Vitamin C] 1,000 mg PO DAILY 09/14/20 Cholecalciferol (Vitamin D3) [Vitamin D3] 1,000 unit PO BID 09/14/20 Famotidine 10 mg PO DAILY PRN 09/14/20 Fexofenadine HCl [Aller-Fex] 1 tab PO DAILY PRN 09/14/20 Gabapentin 100 mg PO BEDTIME 09/14/20 Multi-Probiotic Sinus Support 1 tab PO DAILY 09/14/20 Followup: Rafael Zuniga MD [Primary Care Provider] - (Call to make an appointment. )
== END 2020-09-15 14:17 | disposition home or self-care (01) | DRG 440 ==
LOC: ER 11:04 → ERHOLD 16:04 → INTOOBSV 16:04 → OBSVTOIN 16:04 → 2ND 19:53
PROVIDERS: ADMIT Internal Medicine; ATTEND Internal Medicine
DX: K85.00 Idiopathic acute pancreatitis without necrosis or infection (principal); J45.909 Unspecified asthma, uncomplicated; M06.9 Rheumatoid arthritis, unspecified; I10 Essential (primary) hypertension; Z20.822 Contact with and (suspected) exposure to COVID-19; Z88.3 Allergy status to other anti-infective agents; Z82.5 Family history of asthma and other chronic lower respiratory diseases
CPT/HCPCS: 36415; 74177; 74181; 80048; 80061; 80076; 83690; 83735; 83880; 84100; 84484; 85025; 86301; 93005; 96361; 96374; 96375; 99285; J1650; J2405; J2550; J7040; J7120; J7606; J7799; Q9967; U0003

== ENCOUNTER 2021-06-18 21:16 | Emergency (ER) | payer OTHER ==
[2021-06-18 22:43] LABS: Absolute Lymphocytes (CBC) 2.4 K/uL (0.7-4.9); Basophils % 1.2 % (0-1.3); Hematocrit 38.1 % (36.0-45.0); Lymphocytes % 31.6 % (15.3-44.8); RBC Red Blood Cell Count 4.33 M/uL (3.86-4.86)
[2021-06-18 22:44] LABS: Protime INR 0.99
[2021-06-18 22:58] LABS: ALT/SGPT 25 U/L (12-78); AST/SGOT 23 U/L (15-37); Albumin 3.4 g/dL (3.4-5.0); Alkaline Phosphatase 78 U/L (45-117); BUN Blood Urea Nitrogen 17 mg/dL (7-18); Bicarbonate 22 mmol/L (21-32); Bilirubin Direct < 0.1 mg/dL (0-0.2); Bilirubin Total 0.2 mg/dL (0.2-1.0); Glucose Level 104 mg/dL (74-106); Magnesium 2.4 mg/dL (1.8-2.4); NT PRO-BNP 285 pg/mL (<450); Potassium 3.8 mmol/L (3.5-5.1); Protein, Total 7.7 g/dL (6.4-8.2); Sodium Level 142 mmol/L (136-145); Troponin (Emerg Dept Use Only) < 0.02 ng/mL (0.0-0.045)
[2021-06-18] MEDS ORDERED: ACETAMINOPHEN 500 MG TAB ONE (23:14)
--- NOTE | 2021-06-18 23:53 | ER ---
Nurse's Notes [facility] Name: Veronica Delacruz Age: 81 yrs Sex: Female : 1940 Arrival Date: 06/18/2021 Time: 21:19 Bed 11 Private MD: Diagnosis: Essential (primary) hypertension Presentation: 06/18 21:27 Chief complaint: Patient states: bp has been high the past 2 days. pt does not have htn mr2 and bp is usually in the 120s sys. pt also rpts headache. denies vision changes, dizziness. Coronavirus screen: Vaccine status: Patient reports receiving the 2nd dose of the covid vaccine. Ebola Screen: Patient negative for fever greater than or equal to 101.5 degrees Fahrenheit, and additional compatible Ebola Virus Disease symptoms Patient denies exposure to infectious person. Patient denies travel to an Ebola-affected area in the 21 days before illness onset. Initial Sepsis Screen: Does the patient meet any 2 criteria? No. Patient's initial sepsis screen is negative. Does the patient have a suspected source of infection? No. Patient's initial sepsis screen is negative. Risk Assessment: Do you want to hurt yourself or someone else? Patient reports no desire to harm self or others. Onset of symptoms was June 17, 2021. 21:27 Method Of Arrival: Ambulatory mr2 21:27 Acuity: PRAVEENA 3 mr2 Triage Assessment: 21:35 Headache History: Denies prior headaches. General: Appears distressed, uncomfortable, mr2 well developed, Behavior is calm, cooperative. Pain: Pain currently is 3 out of 10 on a pain scale. Pain began 1 day ago. Also complains of no other associated symptoms. 21:35 Neuro: No deficits noted. mr2 Historical: - Allergies: 21:35 erythromycin base; mr2 - Home Meds: 21:35 Advair Diskus 250-50 mcg/dose Inhl dsdv 1 puff 2 times per day [Active]; prednisone 5 mr2 mg Oral tab once daily [Active]; spironolactone 25 mg Oral tab 1 tab once daily [Active]; - PMHx: 21:35 Asthma; Rheumatoid Arthritis; mr2 - Immunization history:: Adult Immunizations up to date. - Social history:: Smoking status: Patient denies any tobacco usage or history of. Screenin:28 Abuse screen: Denies threats or abuse. Denies injuries from another. Nutritional ld1 screening: No deficits noted. Tuberculosis screening: No symptoms or risk factors identified. Fall Risk None identified. Assessment: 22:26 General: Appears in no apparent distress. comfortable, Behavior is calm, cooperative, ld1 appropriate for age. Pain: Denies pain. Neuro: Level of Consciousness is awake, alert, obeys commands, Oriented to person, place, time, situation, Appropriate for age. Cardiovascular: Capillary refill < 3 seconds Patient's skin is warm and dry. Rhythm is regular. Cardiovascular: Denies chest pain. Respiratory: Airway is patent Respiratory effort is even, unlabored, Respiratory pattern is regular, symmetrical. GI: Abdomen is flat, non-distended. : No signs and/or symptoms were reported regarding the genitourinary system. EENT: No signs and/or symptoms were reported regarding the EENT system. Derm: No signs and/or symptoms reported regarding the dermatologic system. Musculoskeletal: No signs and/or symptoms reported regarding the musculoskeletal system. 23:10 Reassessment: Patient appears in no apparent distress at this time. No changes from ld1 previously documented assessment. Patient and/or family updated on plan of care and expected duration. Pain level reassessed. Patient is alert, oriented x 3, equal unlabored respirations, skin warm/dry/pink. 23:47 Reassessment: Patient appears in no apparent distress at this time. No changes from ld1 previously documented assessment. Patient and/or family updated on plan of care and expected duration. Pain level reassessed. Patient is alert, oriented x 3, equal unlabored respirations, skin warm/dry/pink. Vital Signs: 10:20 BP 220 / 84; Pulse 85; Resp 18; Pulse Ox 98% on R/A; ld1 21:27 BP 216 / 96; Pulse 84; Resp 18; Temp 98.4; Pulse Ox 98% on R/A; Weight 52.16 kg; Height mr2 5 ft. 0 in. (152.40 cm); Pain 3/10; 22:28 BP 206 / 77; Pulse 87; ld1 23:10 BP 189 / 79; Pulse 73; Resp 18; Pulse Ox 99% on R/A; ld1 23:47 BP 156 / 74; Pulse 70; Resp 18; Pulse Ox 99% on R/A; ld1 21:27 Body Mass Index 22.46 (52.16 kg, 152.40 cm) mr2 ED Course: 21:19 Patient arrived in ED. bp1 21:35 Triage completed. mr2 21:38 Arm band placed on. mr2 21:42 Eva Ramsey FNP-C [facility]. kb 21:42 Yvon Mcdonald MD is Attending Physician. kb 22:12 CT Head Brain wo Cont In Process Unspecified. EDMS 22:18 XRAY Chest (1 view) In Process Unspecified. EDMS 22:26 Estelita Guadarrama, RN is Primary Nurse. ld1 22:28 Patient has correct armband on for positive identification. Placed in gown. Bed in low ld1 position. Call light in reach. Side rails up X2. desk monitor on. Pulse ox on. NIBP on. Door closed. Noise minimized. Warm blanket given. 22:28 No provider procedures requiring assistance completed. Inserted saline lock: 20 gauge ld1 in right antecubital area, using aseptic technique. Blood collected. 11/ 00:01 IV discontinued, intact, bleeding controlled, No redness/swelling at site. ld1 Administered Medications: 1103 23:20 Drug: Tylenol 1000 mg Route: PO; ld1 23:22 Follow up: Response: No adverse reaction ld1 Outcome: 23:53 Discharge ordered by . kb 11/ 00:00 Discharged to home ambulatory. ld1 Condition: stable Discharge instructions given to patient, Instructed on discharge instructions, follow up and referral plans. Demonstrated understanding of instructions, follow-up care. 00:01 Patient left the ED. ld1 Signatures: Dispatcher [employer] EDAK Eva Ramsey FNP-C CLOTHES PRESSER-CkJacqueline Marroquin bp1 Estelita Guadarrama, RN RN ld1 Michael Jarvis RN RN mr2
--- NOTE | 2021-06-18 23:53 | EDPHYS ---
Physician Documentation [facility] Name: Veronica Delacruz Age: 81 yrs Sex: Female : 1940 Arrival Date: 06/18/2021 Time: 21:19 Bed 11 Private MD: ED Physician Yvon Mcdonald HPI: 06/18 22:36 This 81 yrs old Female presents to ER via Ambulatory with complaints of High kb Blood Pressure, Headache. 22:36 The patient has elevated blood pressure and discovered this at home, with a home kb device. Onset: The symptoms/episode began/occurred yesterday. Associated signs and symptoms: Pertinent positives: headache, Pertinent negatives: chest pain, dizziness, dyspnea, lightheadedness, nausea, visual changes, vomiting, weakness. Severity of symptoms: At its worst the blood pressure was 220 mm Hg, in the emergency department the blood pressure is unchanged. The patient has not experienced similar symptoms in the past. The patient has been recently seen by a physician:. Pt states she started having high blood pressure yesterday. States she has never had high blood pressure in the past. Went to Dr Zuniga for this today and was told to monitor it and return for worsening symptoms. States pt got down to 160s/90s at his office. Tonight is was 200/100 and she had a headache so she came in to get checked out. States she plans to go back to Dr Zuniga's office tomorrow. Historical: - Allergies: 21:35 erythromycin base; mr2 - Home Meds: 21:35 Advair Diskus 250-50 mcg/dose Inhl dsdv 1 puff 2 times per day [Active]; prednisone 5 mr2 mg Oral tab once daily [Active]; spironolactone 25 mg Oral tab 1 tab once daily [Active]; - PMHx: 21:35 Asthma; Rheumatoid Arthritis; mr2 - Immunization history:: Adult Immunizations up to date. - Social history:: Smoking status: Patient denies any tobacco usage or history of. ROS: 22:36 Constitutional: Negative for fever, chills, and weight loss. kb 22:36 Neuro: Positive for headache. 22:36 All other systems are negative. Exam: 22:23 Constitutional: This is a well developed, well nourished patient who is awake, alert, kb and in no acute distress. Head/Face: Normocephalic, atraumatic. Eyes: Pupils equal round and reactive to light, extra-ocular motions intact. Lids and lashes normal. Conjunctiva and sclera are non-icteric and not injected. Cornea within normal limits. Periorbital areas with no swelling, redness, or edema. ENT: Moist Mucous membranes Cardiovascular: Regular rate and rhythm with a normal S1 and S2. No gallops, murmurs, or rubs. No pulse deficits. Respiratory: Respirations even and unlabored. No increased work of breathing, no retractions or nasal flaring. Abdomen/GI: Soft, non-tender. No distention Skin: Warm, dry with normal turgor. Normal color. MS/ Extremity: Pulses equal, no cyanosis. Neurovascular intact. Full, normal range of motion. Neuro: Awake and alert, GCS 15, oriented to person, place, time, and situation. Moves all extremities. Normal gait. Psych: Awake, alert, with orientation to person, place and time. Behavior, mood, and affect are within normal limits. 22:23 ECG was reviewed by the Attending Physician. Vital Signs: 10:20 BP 220 / 84; Pulse 85; Resp 18; Pulse Ox 98% on R/A; ld1 21:27 BP 216 / 96; Pulse 84; Resp 18; Temp 98.4; Pulse Ox 98% on R/A; Weight 52.16 kg; Height mr2 5 ft. 0 in. (152.40 cm); Pain 3/10; 22:28 BP 206 / 77; Pulse 87; ld1 23:10 BP 189 / 79; Pulse 73; Resp 18; Pulse Ox 99% on R/A; ld1 23:47 BP 156 / 74; Pulse 70; Resp 18; Pulse Ox 99% on R/A; ld1 21:27 Body Mass Index 22.46 (52.16 kg, 152.40 cm) mr2 MDM: 21:42 Patient medically screened. kb 22:33 Data reviewed: vital signs, nurses notes. Data interpreted: Pulse oximetry: on room air kb is 98 %. Interpretation: normal. 23:52 Counseling: I had a detailed discussion with the patient and/or guardian regarding: the kb historical points, exam findings, and any diagnostic results supporting the discharge/admit diagnosis, lab results, radiology results, the need for outpatient follow up, a family practitioner, to return to the emergency department if symptoms worsen or persist or if there are any questions or concerns that arise at home. ED course: BP improved without intervention. Pt was anxious about BP when she arrived, now more calm. Headache is better. Pt will keep bp log at home and call Dr Zuniga for follow up. Will return for worsening symptoms or any other concerns. 06/18 21:57 Order name: Basic Metabolic Panel; Complete Time: 22:59 kb 06/18 21:57 Order name: CBC with Diff; Complete Time: 22:50 kb 06/18 21:57 Order name: LFT's; Complete Time: 22:59 kb 06/18 21:57 Order name: Magnesium; Complete Time: 22:59 kb 06/18 21:57 Order name: NT PRO-BNP; Complete Time: 22:59 kb 06/18 21:57 Order name: PT-INR; Complete Time: 22:50 kb 06/18 21:57 Order name: Troponin (emerg Dept Use Only); Complete Time: 22:59 kb 06/18 21:57 Order name: XRAY Chest (1 view) kb 06/18 21:57 Order name: EKG; Complete Time: 21:58 kb 06/18 21:57 Order name: Cardiac monitoring; Complete Time: 22:28 kb 06/18 21:57 Order name: EKG - Nurse/Tech; Complete Time: 22:28 kb 06/18 21:57 Order name: IV Saline Lock; Complete Time: 22:28 kb 06/18 21:57 Order name: CT Head Brain wo Cont kb 06/18 21:57 Order name: Labs collected and sent; Complete Time: 22:28 kb 06/18 21:57 Order name: O2 Per Protocol; Complete Time: 22:28 kb 06/18 21:57 Order name: O2 Sat Monitoring; Complete Time: 22:28 kb EC:23 Rate is 75 beats/min. Rhythm is regular. QRS Bigelow is Normal. DE interval is normal at kb 134 msec. QRS interval is normal at 76 msec. QT interval is normal at 390 msec. Administered Medications: 23:20 Drug: Tylenol 1000 mg Route: PO; ld1 23:22 Follow up: Response: No adverse reaction ld1 Disposition: 06/19 00:27 Co-signature as Attending Physician, Yvon Mcdonald MD. pkl Disposition Summary: 06/18/21 23:53 Discharge Ordered Location: Home kb Condition: Stable kb Diagnosis - Essential (primary) hypertension kb Followup: kb - With: Emergency Department - When: As needed - Reason: Worsening of condition Followup: kb - With: Private Physician - When: 2 - 3 days - Reason: Recheck today's complaints, Continuance of care, Re-evaluation by your physician Discharge Instructions: - Discharge Summary Sheet kb - Hypertension, Adult, [id number] kb - How to Take Your Blood Pressure, [id number] kb Forms: - Medication Reconciliation Form kb - Thank You Letter kb - Antibiotic Education kb - Prescription Opioid Use kb Signatures: Dispatcher [employer] EDMS Eva Ramsey, TOBI-C RICE DRYER MECHANIC-Yvon Hair MD MD pkl Dibbern, Lauren, RN RN ld1 Michael Jarvis RN RN mr2
[2021-06-19 00:25] VITALS: TEMP 98.4
[2021-06-19 00:27] VITALS: O2SAT 99
[2021-06-19 00:29] VITALS: BP 156/74
--- NOTE | 2021-06-19 07:56 | RAD REPORT ---
EXAM DESCRIPTION: Ayde Single View06/18/2021 10:18 pm CLINICAL HISTORY: Hypertension COMPARISON: August 2020 FINDINGS: Bilateral nodules and interstitial lung opacities headache equivocally mildly progressed. Calcified granulomas are noted. . The heart is normal size IMPRESSION: Equivocal progression in bilateral nodules interstitial lung opacities. This may represe nt infection or pneumonitis superimposed over chronic changes
--- NOTE | 2021-06-19 14:17 | RAD REPORT ---
EXAM DESCRIPTION: CT - Head Brain Wo Cont - 06/19/2021 6:55 am CLINICAL HISTORY: HEADACHE. TECHNIQUE: Axial, coronal, and sagittal images through the brain were performed in the absence of in travenous contrast. This exam was performed according to our departmental dose-optimization program w hich includes use of Automated Exposure Control, adjustment of the mA and/or kV according to patient size and/or use of iterative reconstruction technique. COMPARISON: None. FINDINGS: There is diffuse age-appropriate atrophy throughout the brain parenchyma. Mild periventric ular white matter changes are present, and there is mild ex vacuo dilatation of the ventricular syste m. There is no intra-axial or extra-axial bleed. There is no mass or mass effect. Tiny bilateral basa l ganglia calcifications. The visualized paranasal sinuses and mastoid air cells are patent. No acute fracture is identified. IMPRESSION: 1. No acute intracranial abnormality identified. 2. Mild chronic age-related and microvascular ischemic changes. Electronically signed by: Soumya Benavides MD 06/18/2021 10:32 PM CDT Due to temporary technical issues with the PACS/Fluency reporting system, reports are being signed by the in house radiologists without review as a courtesy to insure prompt reporting. The interpreting radiologist is fully responsible for the content of the report.
--- OUTSIDE RECORDS SUMMARY | 2021-06-28 10:23 | XMS REPORT | Continuity of Care Document ---
:1940 Author Organization [facility] t Address 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 2-16 ity of 00:00: [place] 00 [facility] Allergies, Adverse Reactions, Alerts Allergy Allergy Status Severity Reaction(s) Onset Inactive Treating Comm ents Source Name Type Date Date Clinician Erythrom Propensi Active Nausea Gastric Unive rs ycin ty to and/or 2-16 pain ity of adverse Vomiting 00:00: [place] reaction 00 Medical s Branch Metronid Propensi Active Other - See Weight U nivers azole ty to comments 2-16 loss, ity of adverse 00:00: altered [place] reaction 00 sense of Medica l s tast Branch Social History Social Habit Start Date Stop Date Quantity Comments Source Alcohol intake [facility] Sex Assigned At Uni versity of [facility] Smoking Status Start Date Stop Date Source Never smoker [facility] Medications Ordered Filled Start Stop Current Ordering Indication Dosage Frequency Signature Comments Components Source Medication Medication Date Date Medication? Clinician (SIG) Name Name leflunomide Yes [id number] 10mg Take 10 mg Univers (ARAVA) 10 6-26 by mouth ity o f mg tablet 19:46: every [place] 58 other day. Medical Branch ALBUTEROL 2019-0 Yes [id number] Inhale as Univers SULFATE 6-26 needed. ity of (PROAIR HFA 19:46: [place] INHALE) 58 Medical Branch DENOSUMAB 2019-0 Yes [id number] inject Uni vers (PROLIA SC) 6-26 under the ity of 19:46: skin. [place] 58 Twice a Medical year Branch PREDNISONE 2019-0 Yes [id number] Take 5-10 Univers ORAL 6-26 mg base by ity of 19:46: mouth as [place] 58 needed. Medical Branch ERGOCALCIFE 2019-0 Yes [id number] Take by Univers ROL, 6-26 mouth ity of VITAMIN D2, 19:46[place] (VITAMIN D 58 Medical ORAL) Branch PLANT 2019-0 Yes [id number] Take by Unive rs STANOL 6-26 mouth ity of CECILIA 19:46: daily. [place] (CHOLEST 58 Medical OFF ORAL) Branch ESOMEPRAZOL 2019-0 Yes [id number] Take by Univers E MAGNESIUM 6-26 mouth as ity of (NEXIUM 19:46: needed. [place] ORAL) 58 Medical Branch leflunomide 2019-0 Yes [id number] 10mg Take 10 mg Univers (ARAVA) 10 6-26 by mouth ity o f mg tablet 19:46: every [place] 58 other day. Medical Branch ALBUTEROL 2019-0 Yes [id number] Inhale as Univers SULFATE 6-26 needed. ity of (PROAIR HFA 19:46: [place] INHALE) 58 Medical Branch DENOSUMAB 2019-0 Yes [id number] inject Uni vers (PROLIA SC) 6-26 under the ity of 19:46: skin. [place] 58 Twice a Medical year Branch PREDNISONE 2019-0 Yes [id number] Take 5-10 Univers ORAL 6-26 mg base by ity of 19:46: mouth as [place] 58 needed. Medical Branch ERGOCALCIFE 2019-0 Yes [id number] Take by Univers ROL, 6-26 mouth ity of VITAMIN D2, 19:46: [place]. [place] (VITAMIN D 58 Medical ORAL) Branch PLANT 2019-0 Yes [id number] Take by Unive rs STANOL 6-26 mouth ity of [place] 19:46: daily. [place] (CHOLEST 58 Medical OFF ORAL) Branch ESOMEPRAZOL 2019-0 Yes [id number] Take by Univers E MAGNESIUM 6-26 mouth as ity of (NEXIUM 19:46: needed. [place] ORAL) 58 Medical Branch spironolact 2017-0 Yes 25mg Take 25 mg Univers one 25 mg 3-05 by mouth. ity o f tablet 00:00: [place] 00 [facility] spironolact 2017-0 Yes 25mg Take 25 mg Univers one 25 mg 3-05 by mouth. ity o f tablet 00:00: [place] 00 [facility] dexamethaso 2015-0 Yes [id number] Take one Univers ne 2-16 pill at 11 ity of (DECADRON) 00:00: PM [place] 1 mg tablet 00 Medical Branch dexamethaso Yes [id number] Take one Univers ne 2-16 pill at 11 ity of (DECADRON) 00:00: PM [place] 1 mg tablet 00 [facility] Branch ADVAIR Yes [id number] Univers DISKUS 1-14 ity of 250-50 00:00: [place] mcg/dose 00 Medical inhalation Branch disk ADVAIR Yes [id number] Univers DISKUS 1-14 ity of 250-50 00:00: [place] mcg/dose 00 Medical inhalation Branch disk Procedures Procedure Date / Time Performing Clinician Source Performed INSURANCE CORRESPONDENCE 2019-03-30 05:01:00 Doctor Unassjocelyn, [facility] [place] [facility] Encounters Start End Encounter Admission Attending Care Care Encounter Source Date/Time Date/Time Type Type Clinicians Facility Department ID 2019-03-30 2019-03-30 Telephone Carrillo, [facility] [id number] Univers 00:00:00 00:00:00 Arlette Lazaro [id number] i ty of [place] [id number] Profess[place] [phone] Mi dical nal 220 [facility] 2019-03-30 2019-03-30 Orders Doctor YOLANDA [id number] Univers 00:00:00 00:00:00 Only UnassignedJAZ [id number] ity of [place] [facility] [id number] [place] as [phone] [address] 2019-03-30 2019-03-30 Telephone Carrillo, [facility] [id number] 00:00:00 00:00:00 Arlette Lazaro [id number] [place] [id number] Professio [phone] [facility] [address] 2019-03-30 2019-03-30 Orders Doctor YOLANDA [id number] 00:00:00 00:00:00 Only Unassigned, JAZ [id number] [place] [facility] [id number] [id number] Results This patient has no known results.
== END 2021-06-19 00:01 | disposition home or self-care (01) ==
LOC: ER 21:16
DX: I10 Essential (primary) hypertension (principal); Z88.3 Allergy status to other anti-infective agents
CPT/HCPCS: 36415; 70450; 71045; 80048; 80076; 83735; 83880; 84484; 85025; 85610; 93005; 99284

== ENCOUNTER 2022-06-23 13:29 | Observation (INO) | payer OTHER ==
--- OUTSIDE RECORDS SUMMARY | 2022-06-23 13:32 | XMS REPORT | Continuity of Care Document ---
:1940 Author Organization [facility] t Address 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 2-16 ity of 00:00: [place] [address] Medical Branch No known No known Disease Metho di active active st problems problems Hospit a l Allergies, Adverse Reactions, Alerts Allergy Allergy Status Severity Reaction(s) Onset Inactive Treating Comm ents Source Name Type Date Date Clinician Erythrom Propensi Active Extreme Metho di ycin ty to 4-[address] adverse 00:00: cramps Hospita reaction 00 l s to drug Erythrom Propensi Active Nausea Gastric Unive rs ycin ty to and/or 2-16 pain ity of adverse Vomiting 00:00: [place] reaction 00 Medical s Branch Metronid Propensi Active Other - See Weight U nivers azole ty to comments 2-16 loss, ity of adverse 00:00: altered [place] reaction 00 sense of Medica l s [facility] [facility] Family History Family Member Diagnosis Comments Start Date Stop Date Source Natural brother Lymphoma [facility] Natural brother Diabetes [facility] father [facility] Natural mother Asthma [facility] Natural mother Heart disease [facility] Social History Social Habit Start Date Stop Date Quantity Comments Source Alcohol intake 2018-06-23 2018-06-23 Current drinker Metho dist 00:00:00 00:00:00 of [facility] (finding) Alcohol Comment 2017-12-09 2017-12-09 occ. [facility]00 Hospital Tobacco use and 2017-12-09 2017-12-09 Smokeless tobacco Me [facility]od[facility] exposure 00:00:00 00:00:00 non-user Hospital Sex Assigned At [birth year] [facility] [facility] 00:00:00 [facility]:00 [facility] Smoking Status Start Date Stop Date Source Never smoker [facility] Medical Branch Medications Ordered Filled Start Stop Current Ordering Indication Dosage Frequency Signature Comments Components Source Medication Medication Date Date Medication? Clinician (SIG) Name Name leflunomide 2018- Yes [id number] 10mg Take 10 mg Univers (ARAVA) 10 6-26 by mouth ity o f mg tablet 19:46: every [place] 58 other day. Medical Branch ALBUTEROL Yes [id number] Inhale as Univers SULFATE 6-26 needed. ity of (PROAIR HFA 19:46: [place] INHALE) 58 Medical Branch DENOSUMAB 2018- Yes [id number] inject Uni vers (PROLIA SC) 6-26 under the ity of 19:46: skin. [place] 58 Twice a Medical year Branch PREDNISONE 2018- Yes [id number] Take 5-10 Univers ORAL 6-26 mg base by ity of 19:46: mouth as [place] 58 needed. Medical Branch ERGOCALCIFE 2019- Yes [id number] Take by Univers ROL, 6-26 mouth ity of VITAMIN D2, 19:46: [place]. [place] (VITAMIN D 58 Medical ORAL) Branch PLANT 2019- Yes [id number] Take by Univer s STANOL 6-26 mouth ity of CECILIA 19:46: daily. [place] (CHOLEST 58 Medical OFF ORAL) Branch ESOMEPRAZOL 2018- Yes [id number] Take by Univers E MAGNESIUM 6-26 mouth as ity of (NEXIUM 19:46: needed. [place] ORAL) 58 Medical Branch leflunomide 2018- Yes [id number] 10mg Take 10 mg Univers (ARAVA) 10 6-26 by mouth ity o f mg tablet 19:46: every [place] 58 other day. Medical Branch ALBUTEROL 2018-0 Yes [id number] Inhale as Univers SULFATE 6-26 needed. ity of (PROAIR HFA 19:46: [place] INHALE) 58 Medical Branch DENOSUMAB 0 Yes [id number] inject Uni vers (PROLIA SC) 6-26 under the ity of 19:46: skin. [place] 58 Twice a Medical year Branch PREDNISONE 2018-0 Yes [id number] Take 5-10 Univers ORAL 6-26 mg base by ity of 19:46: mouth as [place] 58 needed. Medical Branch ERGOCALCIFE Yes [id number] Take by Univers ROL, 6-26 mouth ity of VITAMIN D2, 19:46: daily. [facility] (VIT[facility]IN D 58 Medical ORAL) Branch PLANT 2018-0 Yes [id number] Take by Univer s STANOL 6-26 mouth ity of CECILIA 19:46: daily. [place] (CHOLEST 58 Medical OFF ORAL) Branch ESOMEPRAZOL Yes [id number] Take by Univers E MAGNESIUM 6-26 mouth as ity of (NEXIUM 19:46: needed. [place] ORAL) 58 Medical Branch leflunomide 2017-08 Yes 10mg QD Take 10 mg Methodi (ARAVA) 10 1-[address] MG tablet 12:40: daily. Hospit a 33 l albuterol 2017-08 Yes 2{puff} Q6H Inhale 2 M ethodi (PROAIR 1-[address] HFA,PROVENT 12:40: every 6 Hos [place] 33 (six) l HFA,VENTOLI hours as N HFA) 90 needed for mcg/actuati wheezing. on inhaler albuterol 2017-08 Yes 1{ampul Q6H Take 1 Met hodi (ACCUNEB) 1-06 e} ampule by st 1.25 mg/3 12:40: nebulizati Ho spita mL 33 on every 6 l nebulizer (six) solution hours as needed for wheezing. fluticasone 2017-08 Yes 1{puff} Q.5D Inhale 1 Methodi -salmeterol 1-[address] (ADVAIR) 12:40: (two) Hospita 250-50 33 times a l mcg/dose day. DISKUS denosumab 2017-08 Yes 60mg Inject 60 Met hodi (PROLIA) 60 1-[address] mg/mL 12:40: the skin Hospita syringe 33 once. l syringe predniSONE 2017-08 Yes QD Take by Meth abraham 5 mg 1-[address] tablet,shon 12:40: daily. Hosp kameron yed release 33 l (DR/EC) cholecalcif 2017-08 Yes 1000U QD Take 1,000 Methodi hugh, 1-[address] vitamin D3, 12:40: mouth Hospi ta (VITAMIN 33 daily. l D3) 1,000 unit tablet clindamycin Yes 300mg Q.5D Take 300 M ethodi (CLEOCIN) 9-[address] 300 MG 00:00: mouth 2 Hospita capsule 00 (two) l times a day. ipratropium Yes 1{spray QD 1 spray Methodi (ATROVENT) 8 } into each st 0.03 % 00:00: nostril Hospita nasal spray 00 daily. l spironolact Yes 25mg Take 25 mg Univers one 25 mg 3-05 by mouth. ity o f tablet 00:00: [place] Medical Branch spironolact Yes 25mg Take 25 mg Univers one 25 mg 3-05 by mouth. ity o f tablet 00:00: [place] [facility] Branch spironolact Yes 25mg QD Take 25 mg Methodi one 3-[address] (ALDACTONE) 00:00: daily. Hosp k[facility]on 25 MG 00 l tablet dexamethaso Yes [id number] Take one Univers ne 2-16 pill at 11 ity of (DECADRON) 00:00: PM [place] 1 mg tablet 00 Medical Branch dexamethaso 2015-0 Yes [id number] Take one Univers ne 2-16 pill at 11 ity of (DECADRON) 00:00: PM [place] 1 mg tablet 00 Medical Branch ADVAIR Yes [id number] Univers DISKUS 1-14 ity of 250-50 00:00: [place] mcg/dose 00 Medical inhalation Branch disk ADVAIR Yes [id number] Univers DISKUS 1-14 ity of 250-50 00:00: [place] mcg/dose 00 Medical inhalation Branch disk Procedures Procedure Date / Time Performing Clinician Source Performed INSURANCE CORRESPONDENCE 2019-03-30 05:01:00 Doctor Dustin, [facility] [place] [facility] Plan of Care Planned Activity Planned Date Details Comments Source Future Scheduled 2022-06-21 HEPATITIS B VACCINES Met [facility] [place] [facility] Test 01:28:18 (1 of 3 - 3-dose series) [code = HEPATITIS B VACCINES (1 of 3 - 3-dose series)] Future Scheduled 2022-06-21 COVID-19 VACCINE (#1) [facility] Test 01:28:18 [code = COVID-19 VACCINE (#1)] Future Scheduled 2022-06-21 SHINGLES VACCINES (1 Met [facility] [place] [facility] Test 01:28:18 of 2) [code = SHINGLES VACCINES (1 of 2)] Future Scheduled 2022-06-21 65+ [facility]AL [facility] 01:28:18 VACCINE (1 - PCV) [code = 65+ PNEUMOCOCCAL VACCINE (1 - PCV)] Future Scheduled 2022-06-21 INFLUENZA VACCINE Method [facility] Test 01:28:18 [code = INFLUENZA VACCINE] Encounters Start End Encounter Admission Attending Care Care Encounter Source Date/Time Date/Time Type Type Clinicians Facility Department ID 2019-03-30 2019-03-30 Telephone [place], [facility] [id number] Univers 00:00:00 00:00:00 Arlette Lazaro [id number] i [id number] [phone] Ia dical community health 220 [facility] 2019-03-30 2019-03-30 Orders Doctor GUERRERO [id number] Univers 00:00:00 00:00:00 Only Unassigned, JAZ [id number] ity of [place] [facility] [id number] Osw[place] as [phone] [place] [address] Branch 2019-03-30 2019-03-30 Telephone Carrillo, [facility] [id number] 00:00:00 00:00:00 [place] [id number] [place] [id number] Professio [phone] community health 220 [facility] 2019-03-30 2019-03-30 Orders Doctor GUERRERO [id number] 00:00:00 00:00:00 Only Unassigned, JAZ [id number] [place] [facility] [id number] Results This patient has no known results.
[2022-06-23] MEDS ORDERED: ASPIRIN 81 MG CHEWABLE TABLET ONE (14:12)
[2022-06-23 14:27] LABS: Absolute Lymphocytes (CBC) 1.7 K/uL (0.7-4.9); Hematocrit 36.1 % (36.0-45.0); MCV 88.8 fL (80-100); MPV 7.8 fL (7.6-11.3); RBC Red Blood Cell Count 4.06 M/uL (3.86-4.86)
--- NOTE | 2022-06-23 14:34 | RAD REPORT ---
EXAM DESCRIPTION: RAD - Chest Single View - 06/23/2022 2:24 pm CLINICAL HISTORY: CHEST PAIN Chest pain. COMPARISON: Chest Single View dated 06/18/2021; Chest Pa And Lat (2 Views) dated 09/09/2020; Chest Pa And Lat (2 Views) dated 05/31/2020; Chest Pa And Lat (2 Views) dated 04/14/2018 FINDINGS: Portable technique limits examination quality. Chronic interstitial reticulonodular opacities are seen. No focal infiltrate to suspect pneumonia. Th e heart is normal in size. No displaced fractures.
[2022-06-23 14:43] LABS: ALT/SGPT 24 U/L (12-78); AST/SGOT 22 U/L (15-37); Albumin 3.1 g/dL (3.4-5.0); Alkaline Phosphatase 75 U/L (45-117); BUN Blood Urea Nitrogen 23 mg/dL (7-18); Bicarbonate 23 mmol/L (21-32); Bilirubin Total 0.2 mg/dL (0.2-1.0); Glomerular Filtration Rate 55 ml/min (=/>90); Glucose Level 97 mg/dL (74-106); Magnesium 2.4 mg/dL (1.8-2.4); NT PRO-BNP 272 pg/mL (<450); Protein, Total 7.6 g/dL (6.4-8.2); Sodium Level 139 mmol/L (136-145); Troponin High Sensitivity 8.9 pg/mL (<58.9)
[2022-06-23 14:45] LABS: Bilirubin Direct < 0.1 mg/dL (0-0.2)
--- NOTE | 2022-06-23 16:06 | RAD REPORT ---
EXAM DESCRIPTION: CTAbdomen Pelvis W Contrast - 06/23/2022 3:57 pm CLINICAL HISTORY: Abdominal pain. abd pain COMPARISON: Abdomen Pelvis W Contrast dated 09/13/2020; Abdomen Pelvis W Contrast dated 7; CT ABD PELVIS W CONTRAST dated 05/03/2015; Cholangiogram dated 09/13/2020 TECHNIQUE: Biphasic CT imaging of the abdomen and pelvis was performed with 100 ml non-ionic IV cont rast. All CT scans are performed using dose optimization technique as appropriate and may include automated exposure control or mA/KV adjustment according to patient size. FINDINGS: 8 mm noncalcified pulmonary nodule seen in the left lung base. Mild linear atelectasis is present in the right lung base. Small hiatal hernia is present. No aggressive liver mass or biliary dilatation seen. The spleen, left adrenal gland are normal. 3 cm right adrenal mass is again seen appearing mildly increased in size since comparative CT. There is a subtle amount of peripancreatic fat stranding suspected adjacent to the body of pancreas. No solid re nal lesions. No bowel obstruction, free air, free fluid or abscess. Significant fecal retention throughout the col on. Sigmoid diverticulosis coli is present without diverticulitis. The appendix is not identified as a discrete structure, however, no secondary findings of appendicitis are identified. No evidence of significant lymphadenopathy. No suspicious bony findings. IMPRESSION: Subtle pancreatitis findings are seen in the region of the tail the pancreas. Correlatio n with amylase and lipase levels would be suggested. 8-9 mm noncalcified nodule left lung base, appearing stable. Significant sigmoid diverticulosis coli without diverticulitis.
--- NOTE | 2022-06-23 16:53 | EDPHYS ---
Physician Documentation [facility] Name: Veronica Delacruz Age: 82 yrs Sex: Female : 1940 Arrival Date: 06/23/2022 Time: 13:30 Bed 25 Private MD: ED Physician Carlitos Martinez HPI: 06/23 18:14 This 82 yrs old Female presents to ER via Ambulatory with complaints of Chest Pain. kb 18:14 The patient or guardian reports chest pain that is located primarily in the substernal kb area. Onset: this morning, at 10:00. The pain does not radiate. Associated signs and symptoms: Pertinent positives: abdominal pain, nausea, diarrhea. The chest pain is described as a pressure. Duration: The patient or guardian reports a single episode. Modifying factors: The symptoms are alleviated by nothing. the symptoms are aggravated by nothing. Severity of pain: At its worst the pain was mild in the emergency department the pain is unchanged. The patient has not experienced similar symptoms in the past. The patient has not recently seen a physician. Pt reports chest pressure that started at 10:00 today. Reports nausea as well. States she has had lower abd pain with diarrhea over the weekend. Reports shortness of breath, but that is unchanged from normal. Historical: - Allergies: 13:48 erythromycin base; jh5 - PMHx: 13:48 Asthma; Rheumatoid Arthritis; jh5 - Immunization history:: Adult Immunizations up to date. - Social history:: Smoking status: Patient denies any tobacco usage or history of. ROS: 18:14 Constitutional: Negative for fever, chills, and weight loss. kb 18:14 Cardiovascular: Positive for chest pain, Negative for edema, orthopnea, palpitations, paroxysmal nocturnal dyspnea. 18:14 Abdomen/GI: Positive for abdominal pain, nausea, diarrhea, Negative for vomiting. 18:14 All other systems are negative. Exam: 14:04 Constitutional: This is a well developed, well nourished patient who is awake, alert, kb and in no acute distress. Head/Face: Normocephalic, atraumatic. ENT: Moist Mucous membranes Cardiovascular: Regular rate and rhythm with a normal S1 and S2. No gallops, murmurs, or rubs. No pulse deficits. Respiratory: Respirations even and unlabored. No increased work of breathing. Talking in full sentences Abdomen/GI: Soft, non-tender. No distention Skin: Warm, dry with normal turgor. Normal color. MS/ Extremity: Pulses equal, no cyanosis. Neurovascular intact. Full, normal range of motion. Neuro: Awake and alert, GCS 15, oriented to person, place, time, and situation. Moves all extremities. Normal gait. Psych: Awake, alert, with orientation to person, place and time. Behavior, mood, and affect are within normal limits. 14:04 ECG was reviewed by the Attending Physician. Vital Signs: 13:40 BP 201 / 77; Pulse 75; Resp 18; Temp 98.6; Pulse Ox 99% ; Weight 44.91 kg; Height 5 ft. jh5 0 in. (152.40 cm); Pain 3/10; 14:35 BP 173 / 93; Pulse 67; Resp 13; Pulse Ox 97% on R/A; tp1 15:00 BP 170 / 83; Pulse 13; Resp 16; Pulse Ox 98% on R/A; tp1 16:39 BP 168 / 95; Pulse 74; Resp 16; Pulse Ox 100% on R/A; tp1 17:30 BP 176 / 86; Pulse 97; Resp 14; Pulse Ox 98% on R/A; tp1 18:45 BP 157 / 86; Pulse 74; Resp 15; Pulse Ox 98% on R/A; iw 19:53 BP 174 / 72; Pulse 65; Resp 12; Pulse Ox 97% on R/A; tp1 13:40 Body Mass Index 19.33 (44.91 kg, 152.40 cm) jh5 MDM: 13:50 Patient medically screened. kb 16:52 Data reviewed: vital signs, nurses notes. Data interpreted: Pulse oximetry: on room air kb is 100 %. Interpretation: normal. Counseling: I had a detailed discussion with the patient and/or guardian regarding: the historical points, exam findings, and any diagnostic results supporting the discharge/admit diagnosis, lab results, radiology results, the need for further work-up and treatment in the hospital. Physician consultation: Rafael Zuniga MD was contacted at 16:52, regarding admission, to the telemetry unit. patient's condition, and will see patient in inpatient room. 06/23 14:03 Order name: Basic Metabolic Panel; Complete Time: 14:45 kb 06/23 14:03 Order name: CBC with Diff; Complete Time: 14:40 kb 06/23 14:03 Order name: LFT's; Complete Time: 14:45 kb 06/23 14:03 Order name: Magnesium; Complete Time: 14:45 kb 06/23 14:03 Order name: NT PRO-BNP; Complete Time: 14:45 kb 06/23 14:03 Order name: Troponin HS; Complete Time: 14:45 kb 06/23 14:03 Order name: XRAY Chest (1 view); Complete Time: 14:40 kb 06/23 14:03 Order name: EKG; Complete Time: 14:04 kb 06/23 14:03 Order name: Cardiac monitoring; Complete Time: 14:11 kb 06/23 14:03 Order name: EKG - Nurse/Tech; Complete Time: 14:11 kb 06/23 15:33 Order name: Lipase; Complete Time: 16:05 kb 06/23 15:33 Order name: CT Abd/Pelvis - IV Contrast Only; Complete Time: 16:24 kb 06/23 16:52 Order name: SARS RAPID; Complete Time: 17:26 kb 06/23 14:03 Order name: IV Saline Lock; Complete Time: 14:10 kb 06/23 14:03 Order name: Labs collected and sent; Complete Time: 14:10 kb 06/23 14:03 Order name: O2 Per Protocol; Complete Time: 14:10 kb 06/23 14:03 Order name: O2 Sat Monitoring; Complete Time: 14:10 kb EC:04 Rate is 74 beats/min. Rhythm is regular. QRS Guys is Normal. GA interval is normal at kb 128 msec. QRS interval is normal at 80 msec. QT interval is normal at 426 msec. Administered Medications: 14:14 Drug: Aspirin Chewable Tablet 324 mg Route: PO; tp1 17:52 Follow up: Response: No adverse reaction tp1 Disposition Summary: 06/23/22 16:53 Hospitalization Ordered Hospitalization Status: Observation kb Provider: Rafael Zuniga Condition: Stable kb Problem: new kb Symptoms: are unchanged kb Bed/Room Type: Standard kb Location: Telemetry/MedSurg (observation)(06/23/22 18:50) dw Room Assignment: 207(06/23/22 18:54) dw Diagnosis - Acute pancreatitis without necrosis or infection, unspecified kb - Chest pain, unspecified kb Forms: - Medication Reconciliation Form kb - SBAR form kb Addendum: 06/25/2022 07:36 Co-signature as Attending Physician, Carlitos Martinez MD. r n Signatures: Dispatcher [employer] EDEva Lazaro, HYGIENE ASSISTANT-C HYGIENE ASSISTANT-Ckb [place] Diana RN RN dw Carlitos Martinez MD MD rn Rees, Jessica, RN RN jh5 Joelle Bustamante RN RN tp1 Corrections: (The following items were deleted from the chart) 06/23 18:36 16:53 kb bd 18:50 16:53 Telemetry/MedSurg (observation) kb dw 18:50 18:36 401 bd dw 18:54 18:50 dw dw
--- NOTE | 2022-06-23 16:53 | ER ---
Nurse's Notes [facility] Name: Veronica Delacruz Age: 82 yrs Sex: Female : 1940 Arrival Date: 06/23/2022 Time: 13:30 Bed 25 Private MD: Diagnosis: Acute pancreatitis without necrosis or infection, unspecified;Chest pain, unspecified Presentation: 06/23 13:40 Chief complaint: Patient states: chest pain since 10am feels likeindegestion but now jh5 feels stabbing up into my left should; pepcid didn't help. Coronavirus screen: Vaccine status: Patient reports receiving the 2nd dose of the covid vaccine. Client denies travel out of the [place] in the last 14 days. Ebola Screen: Patient negative for fever greater than or equal to 101.5 degrees Fahrenheit, and additional compatible Ebola Virus Disease symptoms Patient denies exposure to infectious person. Patient denies travel to an Ebola-affected area in the 21 days before illness onset. Initial Sepsis Screen: Does the patient meet any 2 criteria? No. Patient's initial sepsis screen is negative. Does the patient have a suspected source of infection? No. Patient's initial sepsis screen is negative. Risk Assessment: Do you want to hurt yourself or someone else? Patient reports no desire to harm self or others. 13:40 Method Of Arrival: Ambulatory [facility] 13:40 Acuity: PRAVEENA 3 5 14:36 Onset of symptoms was June 23, 2022. tp1 Triage Assessment: 13:48 General: Appears in no apparent distress. uncomfortable, slender, well groomed, well jh5 developed, well nourished, Behavior is calm, cooperative, appropriate for age. Pain: Complains of pain in chest. Cardiovascular: Reports chest pain, lightheadedness, nausea. Historical: - Allergies: 13:48 erythromycin base; jh5 - PMHx: 13:48 Asthma; Rheumatoid Arthritis; 5 - Immunization history:: Adult Immunizations up to date. - Social history:: Smoking status: Patient denies any tobacco usage or history of. Screenin:36 Abuse screen: Denies threats or abuse. Denies injuries from another. Nutritional tp1 screening: No deficits noted. Tuberculosis screening: No symptoms or risk factors identified. Fall Risk None identified. Assessment: 13:58 General: Appears in no apparent distress. comfortable, Behavior is calm, cooperative. tp1 Pain: Complains of pain in chest and lower ABD Pain radiates to right arm Pain currently is 3 out of 10 on a pain scale. Quality of pain is described as aching, Pain began 10:30 AM. Neuro: Level of Consciousness is awake, alert, obeys commands, Oriented to person, place, time, situation. Cardiovascular: Patient's skin is warm and dry. Respiratory: Airway is patent Respiratory effort is even, unlabored. GI: Abdomen is flat, non-distended, Abd is soft and non tender Reports diarrhea, nausea. : No signs and/or symptoms were reported regarding the genitourinary system. EENT: No signs and/or symptoms were reported regarding the EENT system. Derm: Skin is pink, warm \T\ dry. Musculoskeletal: Circulation, motion, and sensation intact. 15:00 Reassessment: Patient appears in no apparent distress at this time. No changes from tp1 previously documented assessment. Patient and/or family updated on plan of care and expected duration. Pain level reassessed. Patient is alert, oriented x 3, equal unlabored respirations, skin warm/dry/pink. pain is unchanged. 16:15 Reassessment: Patient appears in no apparent distress at this time. No changes from tp1 previously documented assessment. Patient and/or family updated on plan of care and expected duration. Pain level reassessed. Patient is alert, oriented x 3, equal unlabored respirations, skin warm/dry/pink. Patient denies pain at this time. 17:30 Reassessment: Patient appears in no apparent distress at this time. No changes from tp1 previously documented assessment. Patient and/or family updated on plan of care and expected duration. Pain level reassessed. Patient is alert, oriented x 3, equal unlabored respirations, skin warm/dry/pink. Patient denies pain at this time. 18:30 Reassessment: Patient appears in no apparent distress at this time. No changes from iw previously documented assessment. Patient is alert, oriented x 3, equal unlabored respirations, skin warm/dry/pink. Patient denies pain at this time. 19:48 Reassessment: Patient appears in no apparent distress at this time. No changes from iw previously documented assessment. Patient and/or family updated on plan of care and expected duration. Pain level reassessed. Patient is alert, oriented x 3, equal unlabored respirations, skin warm/dry/pink. Patient denies pain at this time. 19:51 Reassessment: attempted to give report to Melissa Joe. tp1 20:00 Reassessment: report given to Melissa JOE. tp1 Vital Signs: 13:40 BP 201 / 77; Pulse 75; Resp 18; Temp 98.6; Pulse Ox 99% ; Weight 44.91 kg; Height 5 ft. jh5 0 in. (152.40 cm); Pain 3/10; 14:35 BP 173 / 93; Pulse 67; Resp 13; Pulse Ox 97% on R/A; tp1 15:00 BP 170 / 83; Pulse 13; Resp 16; Pulse Ox 98% on R/A; tp1 16:39 BP 168 / 95; Pulse 74; Resp 16; Pulse Ox 100% on R/A; tp1 17:30 BP 176 / 86; Pulse 97; Resp 14; Pulse Ox 98% on R/A; tp1 18:45 BP 157 / 86; Pulse 74; Resp 15; Pulse Ox 98% on R/A; iw 19:53 BP 174 / 72; Pulse 65; Resp 12; Pulse Ox 97% on R/A; tp1 13:40 Body Mass Index 19.33 (44.91 kg, 152.40 cm) jh5 ED Course: 13:30 Patient arrived in ED. rg4 13:48 Triage completed. jh5 13:48 Arm band placed on right wrist. jh5 13:50 Joelle Bustamante, TATYANA is Primary Nurse. tp1 13:50 Eva Ramsey FNP-C [facility]. kb 13:50 Carlitos Martinez MD is Attending Physician. kb 14:00 Patient has correct armband on for positive identification. Bed in low position. Call tp1 light in reach. Client placed on continuous cardiac and pulse oximetry monitoring. NIBP monitoring applied. 14:05 Inserted saline lock: 20 gauge in left forearm, using aseptic technique. Blood tp1 collected. Patient maintains SpO2 saturation greater than 95% on room air. 14:26 XRAY Chest (1 view) In Process Unspecified. EDMS 14:36 No provider procedures requiring assistance completed. tp1 15:59 CT Abd/Pelvis - IV Contrast Only In Process Unspecified. EDMS 16:52 Nadia, Rafael, MD is Hospitalizing Provider. kb 20:26 Patient admitted, IV remains in place. iw Administered Medications: 14:14 Drug: Aspirin Chewable Tablet 324 mg Route: PO; tp1 17:52 Follow up: Response: No adverse reaction tp1 Medication: 14:36 VIS not applicable for this client. tp1 Outcome: 16:53 Decision to Hospitalize by Provider. kb 20:26 Admitted to Med/surg accompanied by nurse, via wheelchair, room 207, with chart. iw 20:26 Condition: good 20:26 Discharge instructions given to patient, Instructed on the need for admit, Demonstrated understanding of instructions. 20:26 Patient left the ED. iw Signatures: Dispatcher [employer] EDMS Eva Ramsey, PHYSICAL THERAPIST AIDE-C PHYSICAL THERAPIST AIDE-Ckb Zoila Roberson, RN RN iw Shobha Heard rg4 Fiona Bettencourt RN RN jh5 Joelle Bustamante RN RN tp1 Corrections: (The following items were deleted from the chart) 16:39 14:52 Reassessment: Patient appears in no apparent distress at this time. No changes tp1 from previously documented assessment. Patient and/or family updated on plan of care and expected duration. Pain level reassessed. Patient is alert, oriented x 3, equal unlabored respirations, skin warm/dry/pink. pain is unchanged tp1 16:39 14:52 BP 170 / 83; Pulse 13bpm; Resp 16bpm; Pulse Ox 98% RA; tp1 tp1
[2022-06-23 17:21] LABS: SARS-CoV-2 Antigen Rapid Res Negative (Negative)
[2022-06-23] MEDS ORDERED: NA CHLORIDE 0.9% 1,000 ML IV SCH (20:01)
[2022-06-23] MEDS ORDERED: ONDANSETRON 4 MG/2 ML VIAL IV PRN (20:01)
[2022-06-23 20:57] VITALS: O2SAT 97
[2022-06-23] MEDS: AMLODIPINE 5 MG TAB PO SCH ×2 (21:26→21:31)
[2022-06-23 21:51] VITALS: BMI 19.3
[2022-06-24 05:53] LABS: Absolute Lymphocytes (CBC) 1.8 K/uL (0.7-4.9); Hematocrit 32.5 % (36.0-45.0); Lymphocytes % 24.2 % (15.3-44.8); MCV 88.1 fL (80-100); MPV 7.5 fL (7.6-11.3); RBC Red Blood Cell Count 3.69 M/uL (3.86-4.86)
[2022-06-24 06:13] LABS: ALT/SGPT 21 U/L (12-78); AST/SGOT 17 U/L (15-37); Albumin 2.7 g/dL (3.4-5.0); Alkaline Phosphatase 63 U/L (45-117); BUN Blood Urea Nitrogen 13 mg/dL (7-18); Bicarbonate 24 mmol/L (21-32); Bilirubin Direct < 0.1 mg/dL (0-0.2); Bilirubin Total 0.3 mg/dL (0.2-1.0); Glomerular Filtration Rate 79 ml/min (=/>90); Glucose Level 79 mg/dL (74-106); Lipase 179 U/L (73-393); Potassium 3.7 mmol/L (3.5-5.1); Protein, Total 6.6 g/dL (6.4-8.2); Sodium Level 141 mmol/L (136-145)
[2022-06-24 08:25] VITALS: BP 137/69; TEMP 97.1
--- NOTE | 2022-06-24 17:49 | P.SSS ---
Patient History Date of Service: 06/24/22 Reason for admission: CHEST PAIN History of Present Illness: CARLINE WHO IS PATIENT OF DR. BENITEZ AND HAS HAD ECHO DONE THERE FOR AORTIC STENOSIS MURMUR SHE HAS COMES WITH CHEST PAIN THAT HAS NOW RESOLVED. SHE HAD NO ABDOMEN PAIN BUT THE HANDLE TURNER DID LIPASE WITH HER HISTORY OF PANCREATITIS AND LIPAS WAS SLIGHTLY HIGH. SHE IS NOT HAPPY THAT SHE IS HERE WITHOUT MUCH SYMPTOMS. HER CE ARE NEGATIVE. SHE FEELS GREAT. SHE WILL GO TO DR. BENITEZ AND GET STRESS TEST DONE. Allergies erythromycin base [Erythromycin Base] Adverse Reaction (Severe, Verified 09/13/20 21:19) Nausea/Vomiting Erythromycin Allergy (Uncoded 07/09/17 22:52) Unknown Home medications list reviewed: Yes Home Medications: Albuterol Sulfate [Ventolin Hfa] 1 inh IH QIDP PRN 07/09/17 Fluticasone/Salmeterol [Advair 250-50 Diskus] 2 inh IH DAILY 07/09/17 Leflunomide 10 mg PO Q48H 07/09/17 Spironolactone 50 mg PO DAILY 07/09/17 Ascorbic Acid [Vitamin C] 1,000 mg PO DAILY 09/14/20 Cholecalciferol (Vitamin D3) [Vitamin D3] 2,000 unit PO DAILY 09/14/20 Famotidine 10 mg PO DAILY PRN 09/14/20 Fexofenadine HCl [Aller-Fex] 1 tab PO DAILY PRN 09/14/20 Gabapentin 100 mg PO BEDTIME 09/14/20 Multi-Probiotic Sinus Support 1 tab PO DAILY 09/14/20 Glucosamine/Chondroiti/[id number] [Cosamin Asu Capsule] 1 cap PO DAILY 06/23/22 Montelukast [Singulair*] 10 mg PO DAILY 06/23/22 Phytosterol/Pantethine [Cholestoff Complete 300Mg Sfgl] 1 cap PO DAILY 06/23/22 cloNIDine HCL [Clonidine HCl] 0.1 mg PO DAILY PRN 06/23/22 - Past Medical/Surgical History Has patient received pneumonia vaccine in the past: Yes Diabetic: No -: Ashma -: Rheumatoid Arthritis -: biopsies on breast x3, negative - Family History Mother -: Lung disease Father -: Heart disease - Social History Smoking Status: Never smoker Alcohol use: Yes CD- Drugs: No Caffeine use: Yes Place of Residence: Home Physical Examination - Vital Signs Temperature: 97.1 F Blood Pressure: 137/69 Pulse: 80 Respirations: 16 Pulse Ox (%): 96 - Physical Exam General: Alert, In no apparent distress HEENT: Atraumatic, PERRLA, Mucous membr. moist/pink, EOMI, Sclerae nonicteric Neck: Supple, 2+ carotid pulse no bruit, No LAD, Without JVD or thyroid abnormality Respiratory: Clear to auscultation bilaterally, Normal air movement Cardiovascular: Regular rate/rhythm, Normal S1 S2 Gastrointestinal: Normal bowel sounds, No tenderness Musculoskeletal: No tenderness Integumentary: No rashes Neurological: Normal gait, Normal speech, Normal strength at 5/5 x4 extr, Normal tone, Normal affect Lymphatics: No axilla or inguinal lymphadenopathy - Diagnosis (Problem(s)) (1) Atypical chest pain Status: Acute Plan: ABOVE. ST TEST SHE IS STABLE WITH NORMAL CE. (2) Acute pancreatitis Onset Date: 07/12/17 Status: Acute Plan: NOT CLEAR ABOUT THIS DIAGNOSIS. SHE HAS NO SYMPTOMS. (3) Rheumatoid arthritis Status: Chronic - Disposition Disposition: ROUTINE DISCHARGE
[2022-06-24] MEDS ORDERED: AMLODIPINE 5 MG TAB PO SCH (21:07)
--- NOTE | 2022-06-25 06:35 | EKG ---
Test Date: 2022-06-23 Test Time: 13:45:57 Clinical Resource Director: ZAIDA Newman MEASUREMENT RESULTS: Intervals: Rate: 74 WA: 128 QRSD: 80 QT: 384 QTc: 426 Logan: P: 67 WA: 128 QRS: 12 T: 42 INTERPRETIVE STATEMENTS: Normal sinus rhythm Normal ECG Compared to ECG 06/18/2021 22:17:28 No significant changes Electronically Signed On 06-25-22 06:30:50 CUTTING INSPECTOR by Harvey Todd
== END 2022-06-24 10:11 | disposition home or self-care (01) ==
LOC: ER 13:29 → ERHOLD 17:23 → 2ND 20:03
PROVIDERS: ADMIT Internal Medicine; ATTEND Internal Medicine
DX: R07.89 Other chest pain (principal); K85.90 Acute pancreatitis without necrosis or infection, unspecified; M06.9 Rheumatoid arthritis, unspecified; J45.909 Unspecified asthma, uncomplicated; Z82.49 Family history of ischemic heart disease and other diseases of the circulatory system; Z83.6 Family history of other diseases of the respiratory system; Z20.822 Contact with and (suspected) exposure to COVID-19; Z88.3 Allergy status to other anti-infective agents
CPT/HCPCS: 93005; 85025 ×2; 80048 ×2; 36415; 83735; 80076 ×2; 84484 ×3; 83690 ×2; 83880; 74177; 71045; 99285; 87811; Q9967; J7030; G0378